=== PATIENT | male | born 1965 | race Hispanic/Latino ===

== ENCOUNTER 2017-06-10 15:48 | Emergency (ER) | payer BC, OTHER ==
[~2017-06-10] VITALS: Ht 170.2 cm; Wt 103.4 kg
[~2017-06-10 15:48] MED LIST: BENTYL10 MG PO; NEXIUM40 MG PO
[2017-06-10] MEDS ORDERED: ACETAMINOPHEN 325 MG TAB PO ONE (16:30)
--- NOTE | 2017-06-10 16:35 | Diagnostic Imaging Report ---
EXAM: XR CHEST 2 VIEWS DATE: 06/10/2017 4:02 PM INDICATION: Chest pain COMPARISON: None FINDINGS: Lines and Tubes: None Heart and Mediastinum: No acute findings. Lungs and Pleura: No acute findings. Bones and Soft Tissues: No acute findings. IMPRESSION: 1. No acute cardiopulmonary findings. Signed by: Dr. Magdaleno Schofield MD on 06/10/2017 4:31 PM
[2017-06-10] MEDS ORDERED: ALBUTEROL/IPRATROPIUM 3 ML NEB NEB ONE (17:00)
[2017-06-10 17:23] VITALS: BP 146/91
== END 2017-06-10 17:20 | disposition home or self-care (01) ==
LOC: ER 15:48
DX: R05 Cough (principal); R51 Headache
CPT/HCPCS: 71046; 94640; 99283

== ENCOUNTER → 2018-04-30 | Day surgery (SDC) | payer OTHER ==
[~2018-04-30] MED LIST changes: +FENTANYL CITRATE/PF 100MCG/2 ML INJ ONE; +MIDAZOLAM HCL 2 MG/2 ML VIAL ONE; +PROPOFOL IV EMULSION 10 MG/ML 20 ML VIAL ONE; +PROPOFOL IV EMULSION 10 MG/ML 50 ML VIAL ONE
--- OUTSIDE RECORDS SUMMARY | 2018-04-30 10:16 | XMS REPORT | CCD ---
Author Author Auto Generated Organization [facility] Address Unknown Phone Unavailable Care Team Providers Care Wood Furniture Assembler Name Role Phone Sera Jenny CP Unavailable Lois Gao CP Unavailable ChartServer, Login CP Unavailable Edie Cabello CP Unavailable Karmen Dominguez CP Unavailable SYSTEM, SYSTEM CP Unavailable Yevgeniy Carmona CP Wes Fisher CP Allergies, Adverse Reactions, Alerts Substance Reaction Status NKDA ?? Active Medications Medication Instructions Start Date End Date Status Tylenol with Codeine 1 - 2 tab, PO, Q4H, PRN, 2 day, 20 11/17/2010 11/19/2010 Completed #3 oral tablet tab, Pain, Substitution Allowed, 11/19/10 23:09:42, Acute Bactrim DS oral 1 tab, PO, BID, 20 tab, 11/17/2010 11/27/2010 Ordered tablet Substitution Allowed, Maintenance Vital Signs Most recent to oldest [Reference Range]: 1 2 Height 170.18 cm (11/17/2010 17:34:00) ? Temperature Oral [96.4-99.1 DegF] 98.7 DegF (11/17/2010 23:31:00) ?? 99.1 DegF (11/17/2010 17:34:00) ?? Systolic Blood Pressure [90-140 mmHg] 129 mmHg (11/17/2010 23:31:00) ?? 138 mmHg (11/17/2010 17:34:00) ?? Diastolic Blood Pressure [60-90 mmHg] 85 mmHg (11/17/2010 23:31:00) ?? 84 mmHg (11/17/2010 17:34:00) ?? Respiratory Rate [14-20 BRMIN] 18 BRMIN (11/17/2010 23:31:00) ?? 18 BRMIN (11/17/2010 17:34:00) ?? Peripheral Pulse Rate [60-100 bpm] 86 bpm (11/17/2010 23:31:00) ?? 90 bpm (11/17/2010 17:34:00) ?? Weight 100.000 kg (11/17/2010 17:34:00) ?
--- OUTSIDE RECORDS SUMMARY | 2018-04-30 10:16 | XMS REPORT | CCD ---
Author Author Auto Generated Organization [facility] Address Unknown Phone Unavailable Care Team Providers Care Accountant Certified Public Name Role Phone CP Unavailable Jenny Zamora CP Unavailable Na Guevara CP [phone] Lois Gao CP Unavailable ChartServer, Login CP [...] ?? Weight 100.000 kg (11/17/2010 17:34:00) ? Procedures Procedures Date Related Diagnosis Emergency department visit for the evaluation and management 11/18/2010 00:00:00 ?? of a patient, which requires these 3 thompson components: A detailed history; A detailed examination; and Medical decision making of moderate complexity. Counseling and/or coordination of care with o
--- OUTSIDE RECORDS SUMMARY | 2018-04-30 10:16 | XMS REPORT | CCD ---
Author Author Auto Generated Organization [facility] Address Unknown Phone Unavailable Care Team Providers Care Family And Consumer Sciences Professor Name Role Phone Sera Jenny CP Unavailable Lois Gao CP Unavailable ChartServer, Login CP Unavailable Edie Cabello CP Unavailable Karmen Dominguez CP Unavailable SYSTEM, SYSTEM CP Unavailable Yevgeniy Carmona CP eWs Fisher CP Allergies, Adverse Reactions, Alerts Substance [...]
--- OUTSIDE RECORDS SUMMARY | 2018-04-30 10:16 | XMS REPORT | CCD ---
Author Author Auto Generated Organization [facility] Address Unknown Phone Unavailable Care Team Providers Care Living Supervisor Name Role Phone CP Unavailable Jenny Zamora CP Unavailable Na Guevara CP [phone] Lois Gao CP Unavailable ChartServer, Login CP [...]
--- OUTSIDE RECORDS SUMMARY | 2018-04-30 10:16 | XMS REPORT | Continuity of Care Document ---
Author Author [facility] Interface Address Unknown Phone Unavailable Problems Problem Status Onset Date Classification Date Reported Comments Source Chronic obstructive pulmonary disease with exacerbation 06/30/2017 09/28/2017 [facility] COUGH Active 06/21/2017 [facility] COPD, HYPOXIA Active 06/21/2017 [facility] Cough 06/19/2017 09/25/2017 [place] COUGH/SOB/CHEST PAIN Active 08/24/2012 [facility] LEG PAIN OR INJURY Active 11/17/2010 [facility] COUGH/CONGESTION Active 06/15/2009 [facility] ARM PAIN Active 03/14/2007 [facility] Hypertension Resolved Problem 08/27/2012 [facility] Sleep apnea<sup>1</sup> Resolved Problem 08/27/2012 [facility] Hypertension Resolved Problem 09/28/2017 [facility], [place] Sleep apnea<sup>1</sup> Resolved Problem 09/28/2017 [facility], [place] Other chest pain 09/25/2017 [place] Respiratory failure, unspecified with hypoxia 09/28/2017 [facility] Sleep apnea, unspecified 09/28/2017 [facility] Essential hypertension 09/28/2017 [facility] Obesity, unspecified 09/28/2017 [facility] Body mass index 35.0-35.9, adult 09/28/2017 [facility] Medications Medication Details Route Status Patient Instructions Ordering Provider Order Date Source Symbicort 160/4.5 inhalation aerosol with adapter 2 puff, INHALER, BID, # 1 ea, 3 Refill(s), Pharmacy: [facility] [place] [facility] Active 06/22/2017 [facility] Ipratropium [place] 0.2 MG/ML Inhalant Solution 200 microgram=1 ml, INHALATION, TID, # 150 ea, 0 Refill(s), Pharmacy: [facility] [place] [facility] Active 06/22/2017 [facility] predniSONE 10 mg oral tablet See Special Instructions, PO, Daily, Days 1-4 - 30 mg daily Days 5-8 - 20 mg daily Days 9-12 - 10 mg daily, X 12 day, # 24 tab, 0 Refill(s), Pharmacy: [facility] [place] [facility] No Longer Active 06/22/2017 [facility] azithromycin 500 mg oral tablet 500 mg=1 tab, PO, Daily, X 5 day, # 5 tab, 0 Refill(s), Pharmacy: [facility] [place] [facility] No Longer Active 06/22/2017 [facility] Trazodone Hydrochloride 50 MG Oral Tablet 50 mg, 1 tab, Route: PO, Drug form: TAB, Bedtime, Dosing Weight 103.636, kg, PRN Sleep, Priority: NOW, Start date: 06/21/17 23:46:00 CDT, Duration: 30 day, Stop date: 07/21/17 23:45:00 CDTNotes: (Same As: Desyrel) No Longer Active 06/22/2017 [facility] Docusate 100 mg, 1 cap, Route: PO, Drug form: CAP, BID, Dosing Weight 103.636, kg, Start date: 06/21/17 17:00:00 CDT, Duration: 30 day, Stop date: 07/21/17 9:00:00 CDTNotes: (Same as: Colace) (Do Not Crush) No Longer Active 06/21/2017 [facility] Ceftriaxone 1 gm, Route: IVP, [id number], Dosing Weight 103.636, kg, Start date: 06/21/17 14:00:00 CDT, Duration: 30 day, Stop date: 07/20/17 14:00:00 CDT, ABX Indication: Non-PNA Respiratory Tract InfectionNotes: (Same As: Rocephin). Use with 100 mL NS and infuse over 30 min MEDICATION WASTE Product Size: 1000 mg Product Wasted: ___ mg No Longer Active 06/21/2017 [facility] Azithromycin 500 mg, Route: IVPB, [id number], Dosing Weight 103.636, kg, Start date: 06/21/17 14:00:00 CDT, Duration: 30 day, Stop date: 07/20/17 14:00:00 CDT, ABX Indication: Non-PNA Respiratory Tract InfectionNotes: (Same As: Zithromax IV) No Longer Active 06/21/2017 [facility] Symbicort 160/4.5 inhalation aerosol with adapter 2 inhalation, Route: INHALATION, Drug Form: AERO/A, Dosing Weight 103.636, kg, RBID, NOW, Start date: 06/21/17 13:36:00 CDT, Duration: 30 day, Stop date: 07/21/17 8:00:00 CDTNotes: (Same as: Symbicort) WASTE: Aerosol - Return to Pharmacy No Longer Active 06/21/2017 [facility] Solu-Medrol 40 mg, 1 mL, Route: IVP, Drug form: INJ, Q8Hnow, Dosing Weight 103.636, kg, Priority: NOW, Start date: 06/21/17 13:36:00 CDT, Duration: 30 day, Stop date: 07/21/17 5:36:00 CDTNotes: (Same as:Solu-MEDROL, A- Methapred) No Longer Active 06/21/2017 [facility] Albuterol 0.833 MG/ML / Ipratropium [place] 0.167 MG/ML Inhalant Solution [DuoNeb] 3 mL, Route: INHALATION, Drug Form: SOLN, Dosing Weight 103.636, kg, RQID, NOW, Start date: 06/21/17 13:36:00 CDT, Duration: 30 day, Stop date: 07/21/17 11:00:00 CDTNotes: (Same as: Duoneb) No Longer Active 06/21/2017 [facility] Dextromethorphan Hydrobromide 10 MG / Guaifenesin 100 MG Oral Tablet 10 mL, Route: PO, Drug Form: LIQ, Dosing Weight 103.636, kg, Q4H, PRN Cough, Start date: 06/21/17 13:36:00 CDT, Stop date: 07/21/17 13:35:00 CDTNotes: (dextromethorphan-guaifenesin 10-100/5 ml LIQ) (Same as: Robitussin-DM) No Longer Active 06/21/2017 [facility] Acetaminophen 325 MG / Hydrocodone Bitartrate 5 MG Oral Tablet 1 tab, Route: PO, Drug Form: TAB, Dosing Weight 103.636, kg, Q4H, PRN Pain Score 4-6, Start date: 06/21/17 13:35:00 CDT, Duration: 30 day, Stop date: 07/21/17 13:34:00 CDTNotes: (Same as: [place] 325/5) Do not exceed 4gm/day of acetaminophen. No Longer Active 06/21/2017 [facility] methylPREDNISolone SODium SUCCinate 125 mg, Route: IVP, ONCE, Dosing Weight 103.636, kg, Priority: STAT, Start date: 06/21/17 11:07:00 CDT, Stop date: 06/21/17 11:07:00 CDT Inactive 06/21/2017 [facility] Albuterol 0.833 MG/ML / Ipratropium [place] 0.167 MG/ML Inhalant Solution [DuoNeb] 3 ml, Route: NEB, Drug Form: SOLN, Dosing Weight 103.636, kg, PRN, PRN Respiratory Protocol, Start date: 06/21/17 11:07:00 CDT, Duration: 30 day, Stop date: 07/21/17 11:06:00 CDTNotes: (Same as: Duoneb) No Longer Active 06/21/2017 [facility] Codeine Phosphate 2 MG/ML / Guaifenesin 20 MG/ML Oral Solution [Cheratussin] 5-10 ml, PO, Q4H, PRN for cough, X 5 day, # 240 mL, 0 Refill(s) No Longer Active 06/19/2017 [facility] Saline Flush 0.9% 10 mL, Route: IVP, Drug Form: INJ, Dosing Weight 104.091, kg, PRN, PRN Line Flush, Start date: 06/19/17 0:09:00 CDT, Duration: 30 day, Stop date: 07/19/17 0:08:00 CDTNotes: (Same as: BD Posiflush) Inactive 06/19/2017 [place] Sodium Chloride 0.9% (Bolus) IV 1,000 mL, 1000 ml/hr, Infuse Over: 1 hr, Route: IV, 1,000, Drug form: INJ, ONCE, Priority: STAT, Dosing Weight 104.091 kg, Start date: 06/19/17 0:09:00 CDT, Stop date: 06/19/17 0:09:00 CDT Inactive 06/19/2017 [place] Acetaminophen 325 MG / Hydrocodone Bitartrate 5 MG Oral Tablet [[place] 5/325] 2 tab, Route: PO, Drug Form: TAB, Dosing Weight 104.091, kg, ONCE, Start date: 06/19/17 0:09:00 CDT, Stop date: 06/19/17 0:09:00 CDTNotes: (Same as: [place] 325/5) Do not exceed 4gm/day of acetaminophen. Inactive 06/19/2017 [facility] albuterol 90 mcg/inh inhalation aerosol 2 puff, INHALATION, QID, PRN Wheezing, # 17 gm, 0 Refill(s) Active 06/16/2017 [facility] Saline Flush 0.9% 10 mL, Route: IVP, Drug Form: INJ, Dosing Weight 102.727, kg, PRN, PRN Line Flush, Start date: 06/15/17 19:42:00 CDT, Duration: 30 day, Stop date: 07/15/17 19:41:00 CDTNotes: (Same as: BD Posiflush) Inactive 06/16/2017 [facility] Azithromycin 5 Day Dose Pack 250 mg oral tablet 250 mg, PO, Daily, Take 2 tablets by mouth the first day then 1 tablet by mouth days 2- 5, 6 tab, Substitution AllowedTake 2 tablets by mouth the first day then 1 tablet by mouth days 2-5 PO Active [facility] 08/25/2012 [facility] albuterol CFC free 90 mcg/inh inhalation aerosol with adapter 2 puff, INHALATION, Q6H, PRN, 9 gm, for wheezing, Substitution Allowed, Maintenance, AERO INHALATION Active [facility] 08/25/2012 [facility] albuterol 0.083% inhalation solution 7.47 mg, Route: NEB, Drug form: SOLN, ONCE, Dosing Weight 102.727, kg, Priority: STAT, Start date: 08/25/12 10:51:00, Stop date: 08/25/12 10:51:00 NEB No Longer Active [facility] 08/25/2012 [facility] predniSONE 20 mg oral tablet 60 mg, 3 tab, PO, Daily, 9 tab, Substitution Allowed, TAB PO Active [facility] 02/16/2011 [facility] albuterol CFC free 90 mcg/inh inhalation aerosol with adapter 1 puff, INHALATION, Q4H, PRN, 9 gm, for wheezing, Substitution Allowed, Maintenance, AERO INHALATION Active [facility] 02/16/2011 [facility] predniSONE 80 mg, Route: PO, ONCE, Priority: STAT, Start date: 02/16/11 15:06:00, Stop date: 02/16/11 15:06:00 PO No Longer Active [facility] 02/16/2011 [facility] albuterol 0.083% inhalation solution 4.98 mg, Route: NEB, Drug form: SOLN, ONCE, Start date: 02/16/11 15:06:00, Stop date: 02/16/11 15:06:00 NEB No Longer Active [facility] 02/16/2011 [facility] Tylenol with Codeine #3 oral tablet 1 - 2 tab, PO, Q4H, PRN, 2 day, 20 tab, Pain, Substitution Allowed, 11/19/10 23:09:42, Acute PO No Longer Active [place] 11/18/2010 [facility] Bactrim DS oral tablet 1 tab, PO, BID, 20 tab, Substitution Allowed, Maintenance PO Active [place] 11/18/2010 [facility] Allergies, Adverse Reactions, Alerts Substance Category Reaction Severity Reaction type Status Date Reported Comments Source Immunizations Immunization Date Given Site Status Last Updated Comments Source Results Order Name Results Value Reference Range Date Interpretation Comments Source CHEM PANEL eGFR 101 mL/min/1.73m2 06/22/2017 Result Comment: The eGFR is calculated using the CKD-EPI formula. In most young, healthy individuals the eGFR will be >90 mL/min/1.73m2. The eGFR declines with age. An eGFR of 60-89 may be normal in some populations, particularly the elderly, for whom the CKD-EPI formula has not been extensively validated. Use of the eGFR is not recommended in the following populations: Individuals with unstable creatinine concentrations, including patients and those with serious co-morbid conditions. Patients with extremes in muscle mass or diet. The data above are obtained from the National Kidney Disease Education Program (NKDEP) which additionally recommends that when the eGFR is used in patients with extremes of body mass index for purposes of drug dosing, the eGFR should be multiplied by the estimated BMI. [facility] CHEM PANEL CO2 24 meq/L 24 - 32 06/22/2017 [facility] CHEM PANEL Potassium Lvl 3.8 meq/L 3.5 - 5.1 06/22/2017 [facility] CHEM PANEL Chloride Lvl 104 meq/L 95 - 109 06/22/2017 [facility] CHEM PANEL Glucose Lvl 145 mg/dL 70 - 99 06/22/2017 [facility] CHEM PANEL AGAP 11.8 meq/L 10.0 - 20.0 06/22/2017 [facility] CHEM PANEL Calcium Lvl 9.1 mg/dL 8.5 - 10.5 06/22/2017 [facility] CHEM PANEL BUN 9 mg/dL 7 - 22 06/22/2017 [facility] CHEM PANEL Creatinine Lvl 0.86 mg/dL 0.50 - 1.40 06/22/2017 [facility] CHEM PANEL Sodium Lvl 136 meq/L 135 - 145 06/22/2017 [facility] HEMATOLOGY WBC 9.0 K/CMM 3.7 - 10.4 06/22/2017 [facility] HEMATOLOGY RBC 4.92 M/CMM 4.70 - 6.10 06/22/2017 [facility] HEMATOLOGY Hgb 14.8 g/dL 14.0 - 18.0 06/22/2017 [facility] Hct 43.8 % 42.0 - 54.0 06/22/2017 [facility] MCV 89.0 fL 80.0 - 94.0 06/22/2017 [facility] MCH 30.0 pg 27.0 - 31.0 06/22/2017 [facility] MCHC 33.7 g/dL 32.0 - 36.0 06/22/2017 [facility] RDW 12.3 % 11.5 - 14.5 06/22/2017 [facility] Platelet 203 K/CMM 133 - 450 06/22/2017 [facility] MPV 9.6 fL 7.4 - 10.4 06/22/2017 [facility] CARDIAC ENZYMES Total CK 107 unit/L 12 - 191 06/21/2017 [facility] CARDIAC ENZYMES CK MB null 0.5 - 3.6 06/21/2017 [facility] CARDIAC ENZYMES BNP 19 pg/mL <=100 pg/mL 06/21/2017 [facility] CARDIAC ENZYMES CK MB Index null 0.0 - 2.5 06/21/2017 [facility] CARDIAC ENZYMES Troponin-I null 0.00 - 0.40 06/21/2017 [facility] PANEL eGFR 102 mL/min/1.73m2 06/21/2017 Result Comment: The eGFR is calculated using the CKD-EPI formula. In most young, healthy individuals the eGFR will be >90 mL/min/1.73m2. The eGFR declines with age. An eGFR of 60-89 may be normal in some populations, particularly the elderly, for whom the CKD-EPI formula has not been extensively validated. Use of the eGFR is not recommended in the following populations: Individuals with unstable creatinine concentrations, including patients and those with serious co-morbid conditions. Patients with extremes in muscle mass or diet. The data above are obtained from the National Kidney Disease Education Program (NKDEP) which additionally recommends that when the eGFR is used in patients with extremes of body mass index for purposes of drug dosing, the eGFR should be multiplied by the estimated BMI. [facility] CHEM PANEL BUN 8 mg/dL 7 - 22 06/21/2017 [facility] CHEM PANEL Creatinine Lvl 0.84 mg/dL 0.50 - 1.40 06/21/2017 [facility] CHEM PANEL Sodium Lvl 140 meq/L 135 - 145 06/21/2017 [facility] CHEM PANEL Potassium Lvl 3.6 meq/L 3.5 - 5.1 06/21/2017 [facility] CHEM PANEL Glucose Lvl 86 mg/dL 70 - 99 06/21/2017 [facility] CHEM PANEL Globulin 3.5 g/dL 2.7 - 4.2 06/21/2017 [facility] CHEM PANEL B/C Ratio 10 6 - 25 06/21/2017 [facility] CHEM PANEL A/G Ratio 1.1 0.7 - 1.6 06/21/2017 [facility] CHEM PANEL CO2 26 meq/L 24 - 32 06/21/2017 [facility] CHEM PANEL Chloride Lvl 102 meq/L 95 - 109 06/21/2017 [facility] CHEM PANEL AGAP 15.6 meq/L 10.0 - 20.0 06/21/2017 [facility] CHEM PANEL ALT 32 unit/L 0 - 65 06/21/2017 [facility] CHEM PANEL Alk Phos 89 unit/L 39 - 136 06/21/2017 [facility] CHEM PANEL Bili Total 1.1 mg/dL 0.2 - 1.3 06/21/2017 [facility] CHEM PANEL AST 20 unit/L 0 - 37 06/21/2017 [facility] CHEM PANEL Calcium Lvl 8.5 mg/dL 8.5 - 10.5 06/21/2017 [facility] CHEM PANEL Albumin Lvl 3.8 g/dL 3.5 - 5.0 06/21/2017 [facility] CHEM PANEL Total Protein 7.3 g/dL 6.4 - 8.4 06/21/2017 [facility] HEMATOLOGY MPV 9.3 fL 7.4 - 10.4 06/21/2017 [facility] Platelet 199 K/CMM 133 - 450 06/21/2017 [facility] RDW 12.5 % 11.5 - 14.5 06/21/2017 [facility] RBC 4.96 M/CMM 4.70 - 6.10 06/21/2017 [facility] WBC 9.0 K/CMM 3.7 - 10.4 06/21/2017 [facility] Hgb 14.8 g/dL 14.0 - 18.0 06/21/2017 [facility] MCHC 33.9 g/dL 32.0 - 36.0 06/21/2017 [facility] MCH 29.8 pg 27.0 - 31.0 06/21/2017 [facility] MCV 87.9 fL 80.0 - 94.0 06/21/2017 [facility] Hct 43.6 % 42.0 - 54.0 06/21/2017 [facility] Eosinophils # 0.4 K/CMM 0.0 - 0.5 06/21/2017 [facility] Monocytes # 0.4 K/CMM 0.0 - 0.8 06/21/2017 [facility] Basophils 0.4 % 0.0 - 1.0 06/21/2017 [facility] Lymphocytes # 2.0 K/CMM 1.0 - 5.5 06/21/2017 [facility] Segs-Bands # 6.1 K/CMM 1.5 - 8.1 06/21/2017 [facility] Eosinophils 4.4 % 0.0 - 4.0 06/21/2017 [facility] Monocytes 4.8 % 2.0 - 12.0 06/21/2017 [facility] Lymphocytes 22.2 % 20.0 - 40.0 06/21/2017 [facility] Segs 68.2 % 45.0 - 75.0 06/21/2017 [facility] Chest 1view DX Chest 1view DX 1 VIEW CXR. PORTABLE EXAM 11:31 AM HISTORY: Chest pain, shortness of breath and cough. COMPARISON: 06/15/2017 chest x-ray. The cardiomediastinal silhouette is normal. The lungs are clear with normal pulmonary vasculature. No pleural abnormality. Bones intact. IMPRESSION: Normal exam. END OF IMPRESSION SL: [id number] 06/21/2017 - - Read by: Diego Landon MD Dictated Date/time: 06/21/17 11:46 Electronically Signed by: Diego Landon MD 06/21/17 11:46 FINAL REPORT [facility] CARDIAC ENZYMES Troponin-I null 0.00 - 0.40 06/19/2017 [place] CHEM PANEL A/G Ratio 1.1 0.7 - 1.6 06/19/2017 [place] CHEM PANEL AGAP 9.5 meq/L 10.0 - 20.0 06/19/2017 [place] CHEM PANEL B/C Ratio 12 6 - 25 06/19/2017 [place] CHEM PANEL Globulin 3.3 g/dL 2.7 - 4.2 06/19/2017 [place] CHEM PANEL eGFR 95 mL/min/1.73m2 06/19/2017 Result Comment: The eGFR is calculated using the CKD-EPI formula. In most young, healthy individuals the eGFR will be >90 mL/min/1.73m2. The eGFR declines with age. An eGFR of 60-89 may be normal in some populations, particularly the elderly, for whom the CKD-EPI formula has not been extensively validated. Use of the eGFR is not recommended in the following populations: Individuals with unstable creatinine concentrations, including patients and those with serious co-morbid conditions. Patients with extremes in muscle mass or diet. The data above are obtained from the National Kidney Disease Education Program (NKDEP) which additionally recommends that when the eGFR is used in patients with extremes of body mass index for purposes of drug dosing, the eGFR should be multiplied by the estimated BMI. [place] CHEM PANEL Bili Total 0.7 mg/dL 0.2 - 1.3 06/19/2017 [place] CHEM PANEL Total Protein 6.9 g/dL 6.4 - 8.4 06/19/2017 [place] CHEM PANEL Albumin Lvl 3.6 g/dL 3.5 - 5.0 06/19/2017 [place] CHEM PANEL ALT 28 unit/L 0 - 65 06/19/2017 [place] CHEM PANEL AST 22 unit/L 0 - 37 06/19/2017 [place] CHEM PANEL Alk Phos 97 unit/L 39 - 136 06/19/2017 [place] CHEM PANEL Sodium Lvl 141 meq/L 135 - 145 06/19/2017 [place] CHEM PANEL Potassium Lvl 3.5 meq/L 3.5 - 5.1 06/19/2017 [place] CHEM PANEL Chloride Lvl 106 meq/L 95 - 109 06/19/2017 [place] CHEM PANEL CO2 29 meq/L 24 - 32 06/19/2017 [place] CHEM PANEL Calcium Lvl 7.9 mg/dL 8.5 - 10.5 06/19/2017 [place] CHEM PANEL Glucose Lvl 124 mg/dL 70 - 99 06/19/2017 [place] CHEM PANEL BUN 11 mg/dL 7 - 22 06/19/2017 [place] CHEM PANEL Creatinine Lvl 0.93 mg/dL 0.50 - 1.40 06/19/2017 [place] HEMATOLOGY Hct 42.5 % 42.0 - 54.0 06/19/2017 [place] HEMATOLOGY RBC 4.80 M/CMM 4.70 - 6.10 06/19/2017 [place] HEMATOLOGY WBC 10.2 K/CMM 3.7 - 10.4 06/19/2017 [place] HEMATOLOGY Hgb 14.0 g/dL 14.0 - 18.0 06/19/2017 [place] HEMATOLOGY MCHC 33.0 g/dL 32.0 - 36.0 06/19/2017 [place] HEMATOLOGY MCV 88.4 fL 80.0 - 94.0 06/19/2017 [place] HEMATOLOGY MCH 29.1 pg 27.0 - 31.0 06/19/2017 [place] HEMATOLOGY Platelet 225 K/CMM 133 - 450 06/19/2017 [place] HEMATOLOGY RDW 12.7 % 11.5 - 14.5 06/19/2017 [place] HEMATOLOGY MPV 9.5 fL 7.4 - 10.4 06/19/2017 [place] HEMATOLOGY Lymphocytes 30.1 % 20.0 - 40.0 06/19/2017 [place] HEMATOLOGY Monocytes 3.8 % 2.0 - 12.0 06/19/2017 [place] HEMATOLOGY Segs 59.9 % 45.0 - 75.0 06/19/2017 [place] HEMATOLOGY Eosinophils # 0.6 K/CMM 0.0 - 0.5 06/19/2017 [place] HEMATOLOGY Monocytes # 0.4 K/CMM 0.0 - 0.8 06/19/2017 [facility] HEMATOLOGY Lymphocytes # 3.1 K/CMM 1.0 - 5.5 06/19/2017 [facility] HEMATOLOGY Segs-Bands # 6.1 K/CMM 1.5 - 8.1 06/19/2017 [facility] HEMATOLOGY Basophils 0.6 % 0.0 - 1.0 06/19/2017 [facility] HEMATOLOGY Eosinophils 5.6 % 0.0 - 4.0 06/19/2017 [facility] HEMATOLOGY Basophils # 0.1 K/CMM 0.0 - 0.2 06/19/2017 [facility] Chest Pulmonary Embolism CTA Chest Pulmonary Embolism CTA CLINICAL HISTORY: , - Persistent cough and shortness of breath EXAM: CT pulmonary angiogram 06/19/2017 12:09 AM CDT Comparisons: None. TECHNIQUE: Following a timed administration of intravenous contrast, volumetric CT acquisition was performed in the chest. Images in the axial, coronal, and sagittal planes were presented for interpretation. Maximum intensity projection images were also presented for interpretation. This examination was performed according to our departmental dose optimization protocol, which includes automated exposure control, adjustment of the mA and/or kV according to the patient size and/or use of iterative reconstruction technique. Radiation dose and contrast: 100 ml omni DLP: 992.59 mGy-cm. FINDINGS: There is no evidence of pulmonary embolism on this diagnostic quality study. The lungs are clear without focal consolidation or pleural effusion . The heart is normal in size. The thoracic aorta and its primary branches are normal in course and caliber. The main pulmonary artery and visualized proximal tracheobronchial tree are normal in appearance. There are no pathologically enlarged mediastinal, hilar, supraclavicular, or axillary lymph nodes. The soft tissue structures of the neck are grossly normal in appearance. Limited evaluation of the upper abdomen demonstrates no gross abnormalities. The osseous structures are within normal limits for the patient's age. IMPRESSION: 1. No evidence of pulmonary embolism. 2. No acute intrathoracic process. 06/19/2017 - - Read by: Justin Soto MD Dictated Date/time: 06/19/17 01:52 Electronically Signed by: Justin Soto MD 06/19/17 01:54 FINAL REPORT [facility] CARDIAC ENZYMES CK MB Index 1.1 0.0 - 2.5 06/16/2017 [facility] CARDIAC ENZYMES BNP 26 pg/mL <=100 pg/mL 06/16/2017 [facility] CARDIAC ENZYMES Troponin-I null 0.00 - 0.40 06/16/2017 [facility] CARDIAC ENZYMES CK MB 0.8 ng/mL 0.5 - 3.6 06/16/2017 [facility] CARDIAC ENZYMES Total CK 70 unit/L 12 - 191 06/16/2017 [facility] CHEM PANEL eGFR 80 mL/min/1.73m2 06/16/2017 Result Comment: The eGFR is calculated using the CKD-EPI formula. In most young, healthy individuals the eGFR will be >90 mL/min/1.73m2. The eGFR declines with age. An eGFR of 60-89 may be normal in some populations, particularly the elderly, for whom the CKD-EPI formula has not been extensively validated. Use of the eGFR is not recommended in the following populations: Individuals with unstable creatinine concentrations, including patients and those with serious co-morbid conditions. Patients with extremes in muscle mass or diet. The data above are obtained from the National Kidney Disease Education Program (NKDEP) which additionally recommends that when the eGFR is used in patients with extremes of body mass index for purposes of drug dosing, the eGFR should be multiplied by the estimated BMI. [facility] CHEM PANEL CO2 28 meq/L 24 - 32 06/16/2017 [facility] CHEM PANEL Total Protein 7.4 g/dL 6.4 - 8.4 06/16/2017 [facility] CHEM PANEL Calcium Lvl 8.8 mg/dL 8.5 - 10.5 06/16/2017 [facility] CHEM PANEL Chloride Lvl 103 meq/L 95 - 109 06/16/2017 [facility] CHEM PANEL Alk Phos 108 unit/L 39 - 136 06/16/2017 [facility] CHEM PANEL AST 15 unit/L 0 - 37 06/16/2017 [facility] CHEM PANEL Bili Total 0.7 mg/dL 0.2 - 1.3 06/16/2017 [facility] CHEM PANEL ALT 36 unit/L 0 - 65 06/16/2017 [facility] CHEM PANEL Albumin Lvl 4.1 g/dL 3.5 - 5.0 06/16/2017 [facility] CHEM PANEL A/G Ratio 1.2 0.7 - 1.6 06/16/2017 [facility] CHEM PANEL Globulin 3.3 g/dL 2.7 - 4.2 06/16/2017 [facility] CHEM PANEL B/C Ratio 10 6 - 25 06/16/2017 [facility] CHEM PANEL AGAP 9.4 meq/L 10.0 - 20.0 06/16/2017 [facility] CHEM PANEL Glucose Lvl 181 mg/dL 70 - 99 06/16/2017 [facility] CHEM PANEL Potassium Lvl 3.4 meq/L 3.5 - 5.1 06/16/2017 [facility] CHEM PANEL Sodium Lvl 137 meq/L 135 - 145 06/16/2017 [facility] CHEM PANEL Creatinine Lvl 1.08 mg/dL 0.50 - 1.40 06/16/2017 [facility] CHEM PANEL BUN 11 mg/dL 7 - 22 06/16/2017 [facility] HEMATOLOGY Eosinophils 0.5 % 0.0 - 4.0 06/16/2017 [facility] HEMATOLOGY Monocytes 3.0 % 2.0 - 12.0 06/16/2017 [facility] HEMATOLOGY Segs 73.8 % 45.0 - 75.0 06/16/2017 [facility] Lymphocytes 22.3 % 20.0 - 40.0 06/16/2017 [facility] Segs-Bands # 6.7 K/CMM 1.5 - 8.1 06/16/2017 [facility] Basophils 0.4 % 0.0 - 1.0 06/16/2017 [facility] Monocytes # 0.3 K/CMM 0.0 - 0.8 06/16/2017 [facility] Lymphocytes # 2.0 K/CMM 1.0 - 5.5 06/16/2017 [facility] D-Dimer null 06/16/2017 [facility] MPV 9.8 fL 7.4 - 10.4 06/16/2017 [facility] Platelet 211 K/CMM 133 - 450 06/16/2017 [facility] MCHC 34.4 g/dL 32.0 - 36.0 06/16/2017 [facility] RDW 12.6 % 11.5 - 14.5 06/16/2017 [facility] MCH 30.4 pg 27.0 - 31.0 06/16/2017 [facility] MCV 88.5 fL 80.0 - 94.0 06/16/2017 [facility] Hct 42.9 % 42.0 - 54.0 06/16/2017 [facility] Hgb 14.7 g/dL 14.0 - 18.0 06/16/2017 [facility] RBC 4.84 M/CMM 4.70 - 6.10 06/16/2017 [facility] WBC 9.1 K/CMM 3.7 - 10.4 06/16/2017 [facility] HEMATOLOGY PT 12.0 s 12.0 - 14.7 06/16/2017 [facility] HEMATOLOGY INR 0.89 0.85 - 1.17 06/16/2017 [facility] PTT 26.3 s 22.9 - 35.8 06/16/2017 [facility] Chest 2 views DX Chest 2 views DX Study: Chest 2 views DX 06/15/2017 8:31 PM CDT Ordering Physician: Adalberto Greenwood Clinical Indication: Cough, SOB - Do not compare to last film, that was the wrong patient Comparison: None FINDINGS: The lung volumes are low. There is no evidence for alveolar consolidation, pleural effusion, pulmonary edema or pneumothorax. The cardiomediastinal silhouette is within normal limits. No acute osseous abnormality is seen. Soft tissues are unremarkable. IMPRESSION: No acute cardiopulmonary disease. SL: [id number] 06/15/2017 - - Read by: Libra Keller MD Dictated Date/time: 06/15/17 20:42 Electronically Signed by: Libra Keller MD 06/15/17 20:43 FINAL REPORT [facility] Chest 2 views DX Chest 2 views DX This report does not belong to patient. This examination was dictated in error. Please disregard this report. Clinical Indication: Pancreatic mass. Pancreas biopsy yesterday. Acute abdominal and chest pain Comparison: August 25, 2012 FINDINGS: The PA and lateral chest radiographs shows normal lung volumes without interstitial or airspace opacities, pleural effusions or pneumothorax. The heart size and pulmonary vasculature are normal. The trachea is midline. There are no clinically significant osseous abnormalities noted. IMPRESSION: No chest radiographic evidence of acute cardiopulmonary disease. No free air is identified. SL: [id number] 06/15/2017 - - Read by: Gray Ramos MD Dictated Date/time: 06/15/17 21:25 Electronically Signed by: Gray Ramos MD 06/15/17 21:28 FINAL REPORT - - Read by: Gray Ramos MD Dictated Date/time: 06/15/17 20:06 Electronically Signed by: Gray Ramos MD 06/15/17 20:07 FINAL REPORT [facility] Chest 2 views Chest 2 views NAME: SHELBY NUGENT : 1965 SEX: M Ordering Physician: Jorje Quiles Chest 2 views : Aug 25, 2012 11:07:00 AM. CLINICAL INDICATION: Chest pain. Comparison Examination: 02/16/2011. FINDINGS: Cardiac and mediastinal structures are stable. No focal infiltrate identified within the lungs, no edema, no pleural effusions and no pneumothorax. SL: 14 08/25/2012 - - Read by: Zachary Cristobal Date/time: 08/25/12 11:14 Electronically Signed by: Zachary Cristobal MD 08/25/12 11:14 FINAL REPORT [facility] Vital Signs Vital Sign Value Date Comments Source Temperature Oral (F) 97.6 F 06/22/2017 [facility] Heart Rate 104 06/22/2017 [facility] Systolic (mm Hg) 145 06/22/2017 [facility] Diastolic (mm Hg) 76 06/22/2017 [facility] Respitory Rate 20 06/22/2017 [facility] Systolic (mm Hg) 146 06/22/2017 [facility] Diastolic (mm Hg) 84 06/22/2017 [facility] Respitory Rate 16 06/22/2017 [facility] Heart Rate 92 06/22/2017 [facility] Temperature Oral (F) 97.9 F 06/22/2017 [facility] Heart Rate 103 06/22/2017 [facility] Temperature Oral (F) 98.1 F 06/22/2017 [facility] Respitory Rate 20 06/22/2017 [facility] Systolic (mm Hg) 132 06/22/2017 [facility] Diastolic (mm Hg) 74 06/22/2017 [facility] Height 170.18 cm 06/21/2017 [facility] Weight 103.636 06/21/2017 [facility] BMI Calculated 35.78 06/21/2017 [facility] Height 170.18 cm 06/21/2017 [facility] BMI Calculated 35.78 06/21/2017 [facility] Weight 103.636 06/21/2017 [facility] Respitory Rate 20 06/19/2017 [facility] Heart Rate 89 06/19/2017 [place] Temperature Oral (F) 97.8 F 06/19/2017 [place] Systolic (mm Hg) 150 06/19/2017 [place] Diastolic (mm Hg) 78 06/19/2017 [place] Weight 104.091 06/19/2017 [place] Temperature Oral (F) 97.9 F 06/19/2017 [place] Systolic (mm Hg) 145 06/19/2017 [place] Diastolic (mm Hg) 85 06/19/2017 [place] Heart Rate 78 06/19/2017 [place] Respitory Rate 18 06/19/2017 [place] Respitory Rate 20 06/16/2017 [facility] Temperature Oral (F) 98.5 F 06/16/2017 [place] Systolic (mm Hg) 149 06/16/2017 [facility] Diastolic (mm Hg) 82 06/16/2017 [facility] Heart Rate 86 06/16/2017 [facility] Weight 102.727 08/25/2012 [facility] Height 167.64 cm 08/25/2012 [facility] Diastolic (mm Hg) 60.0 02/16/2011 [facility] Temperature Oral (F) 98.0 F 02/16/2011 [facility] Heart Rate 87.0 02/16/2011 [facility] Respitory Rate 18.0 02/16/2011 [facility] Systolic (mm Hg) 134.0 02/16/2011 [facility] Height 170.18 cm 02/16/2011 [facility] Weight 96.364 02/16/2011 [facility] Temperature Oral (F) 98.7 F 02/16/2011 [facility] Systolic (mm Hg) 115.0 02/16/2011 [facility] Diastolic (mm Hg) 90.0 02/16/2011 [facility] Heart Rate 81.0 02/16/2011 [facility] Respitory Rate 18.0 02/16/2011 [facility] Respitory Rate 18.0 11/18/2010 [facility] Peripheral Pulse Rate 86.0 11/18/2010 [facility] Temperature Oral (F) 98.7 F 11/18/2010 [facility] Diastolic (mm Hg) 85.0 11/18/2010 [facility] Systolic (mm Hg) 129.0 11/18/2010 [facility] Height 170.18 cm 11/17/2010 [facility] Weight 100.0 11/17/2010 [facility] Diastolic (mm Hg) 84.0 11/17/2010 [facility] Respitory Rate 18.0 11/17/2010 [facility] Peripheral Pulse Rate 90.0 11/17/2010 [facility] Temperature Oral (F) 99.1 F 11/17/2010 [facility] Systolic (mm Hg) 138.0 11/17/2010 [facility] Encounters Location Location Details Encounter Type Encounter Number Reason For Visit Attending Provider ADM Date DC Date Status Source [facility] Emergency [id number] ARM PAIN KUSHAL YADIRA 03/15/2007 03/15/2007 Active [facility] Emergency [id number] COUGH/CONGESTION MITCHEL THERESA 06/16/2009 06/16/2009 Active [facility] Emergency [id number] NICOLE CARRILLO 11/17/2010 11/18/2010 Active [facility] Emergency [id number] HEATHER DALI 02/16/2011 02/16/2011 Active [facility] Emergency [id number] SANTIAGO LAZARUS 08/25/2012 08/25/2012 Active [facility] Emergency [id number] Kushal Lujan 06/16/2017 06/16/2017 [facility] Emergency [id number] [place] Wolf 06/19/2017 06/19/2017 [facility] Observation [id number] Gwendolyn Kwok 06/21/2017 06/22/2017 [facility] Procedures Procedure Code Date Perfomer Comments Source Emergency department visit for the evaluation and management of a patient, which requires these 3 thompson components: A detailed history; A detailed examination; and Medical decision making of moderate complexity. Counseling [place] [id number] 11/18/2010 [facility]
--- OUTSIDE RECORDS SUMMARY | 2018-04-30 10:16 | XMS REPORT | CCD ---
Author Author Auto Generated Organization [facility] Address Unknown Phone Unavailable Care Team Providers Care Electric Frying Pan Repairer Name Role Phone Sera Jenny CP Unavailable [...]
--- OUTSIDE RECORDS SUMMARY | 2018-04-30 10:16 | XMS REPORT | Clinical Summary ---
Author Author [facility] Organization [facility] Address Unknown Phone Unavailable Care Team Providers Care Profile Saw Operator Name Role Phone Brittany Segovia PCP Unavailable Allergies No Known Allergies Medications Not on file Active Problems Not on file Encounters Care Team Description Date Type Specialty 06/18/2017 Emergency Emergency Medicine - 06/19/2017 06/18/2017 Orders Only General Internal Medicine after 04/29/2017 Social History Date Tobacco Use Types Packs/Day Years Used Never Assessed Sex Assigned at Date Recorded Not on file Industry Job Start Date Occupation Not on file Not on file Not on file Travel End Travel History Travel Start No recent travel history available. Last Filed Vital Signs Time Taken Vital Sign Reading 06/18/2017 5:50 PM CDT Blood Pressure 139/86 06/18/2017 5:50 PM CDT Pulse 76 06/18/2017 3:21 PM CDT Temperature 36.8 C (98.2 F) 06/18/2017 5:50 PM CDT Respiratory Rate 20 06/18/2017 5:50 PM CDT Oxygen Saturation 95% - Inhaled Oxygen - Concentration 06/18/2017 3:21 PM CDT Weight 103.4 kg (228 lb) 06/18/2017 3:21 PM CDT Height 170.2 cm (5' 7") 06/18/2017 3:21 PM CDT Body Mass Index 35.71 Plan of Treatment Not on file Procedures Comments Procedure Name Priority Date/Time Associated Diagnosis XR CHEST 2 VIEWS STAT 06/18/2017 8:51 PM CDT CBC W/PLT COUNT & AUTO STAT 06/18/2017 DIFFERENTIAL 8:12 PM CDT BASIC METABOLIC PANEL (7) STAT 06/18/2017 8:12 PM CDT CBC W/PLT COUNT & AUTO STAT 06/18/2017 DIFFERENTIAL 8:12 PM CDT ECG 12-LEAD Routine 06/18/2017 3:24 PM CDT Procedure Note - Interface, External Ris In - 06/18/2017 10:15 PM CDT Ventricula r Rate 79 BPM Atrial Rate 79 BPM P-R Interval 160 ms QRS Duration 104 ms Q-T Interval 374 ms QTC Calculatio n(Bazett) 428 ms P Woden 44 degrees R Woden 23 degrees T Woden 42 degrees Normal sinus rhythm Normal ECG No previous ECGs available ECG 12-LEAD STAT 06/18/2017 3:24 PM CDT after 04/29/2017 Results * XR chest 2 views (06/18/2017 8:51 PM CDT) Narrative Performed At FINAL REPORT [facility] Examination: Two view Chest X-ray. CLINICAL HISTORY: Cough COMPARISON:None. The cardiomediastinal and hilar contours are unremarkable. The lung volumes are low. There is no focal consolidation, pleural effusion, pneumothorax or evidence of overt pulmonary edema. There is no acute bony abnormality. IMPRESSION: No acute abnormality. Signed: Tai Han MD Report Verified Date/Time:06/18/2017 20:53:03 Reading Location: [address] Reading Room Procedure Note Interface, External Ris In - 06/18/2017 8:55 PM CDT FINAL REPORT Examination: Two view Chest X-ray. CLINICAL HISTORY: Cough COMPARISON:None. The cardiomediastinal and hilar contours are unremarkable. The lung volumes are low. There is no focal consolidation, pleural effusion, pneumothorax or evidence of overt pulmonary edema. There is no acute bony abnormality. IMPRESSION: No acute abnormality. Signed: Tai Han MD Report Verified Date/Time: 06/18/2017 20:53:03 Reading Location: [address] Reading Room Performing Organization Address City/State/Zipcode Phone Number [facility] * CBC with platelet count + automated diff (06/18/2017 8:12 PM CDT) WBC 9.2 3.5 - 10.5 K/L [facility] RBC 4.69 4.63 - 6.08 M/L [facility] Hemoglobin 14.1 13.7 - 17.5 GM/DL [facility] Hematocrit 42.7 40.1 - 51.0 % [facility] MCV 91.0 79.0 - 92.2 fL [facility] MCH 30.1 25.7 - 32.2 pg [facility] MCHC 33.0 32.3 - 36.5 GM/DL [facility] RDW 11.9 11.6 - 14.4 % [facility] Platelets 217 150 - 450 K/CU MM [facility] MPV 10.9 9.4 - 12.4 fL [facility] nRBC 0 0 - 0 /100 WBC [facility] % Neutros 54 % [facility] % Lymphs 33 % [facility] % Monos 5 % [facility] % Eos 6 % [facility] % Baso 1 % [facility] # Neutros 4.96 1.78 - 5.38 K/L [facility] # Lymphs 3.07 1.32 - 3.57 K/L [facility] # Monos 0.47 0.30 - 0.82 K/L [facility] # Eos 0.58 (H) 0.04 - 0.54 K/L [facility] # Baso 0.06 0.01 - 0.08 K/L [facility] Immature 0 0 - 1 % [facility] Granulocytes-Relative [facility] Specimen Blood Performing Organization Address City/State/Zipcode Phone Number [facility] [address] [place] [address] [facility] * Basic metabolic panel (Na, K+, Cl, CO2, Glu, Ca, BUN, Cr) (06/18/2017 8:12 PM CDT) Sodium 140 136 - 145 meq/L [facility] Potassium 3.3 (L) 3.5 - 5.1 meq/L [facility] Chloride 104 98 - 107 meq/L [facility] CO2 26 22 - 29 meq/L [facility] BUN 12 7 - 21 mg/dL [facility] Creatinine 0.85 0.57 - 1.25 mg/dL [facility] Glucose 101 70 - 105 mg/dL [facility] Calcium 9.0 8.4 - 10.2 mg/dL [facility] EGFR 95Comment: ESTIMATED GFR IS mL/min/1.[address] [facility] NOT ACCURATE CREATININE [facility] CLEARANCE IN PREDICTING GLOMERULAR FILTRATION RATE. ESTIMATED GFR IS NOT APPLICABLE FOR DIALYSIS PATIENTS. Specimen Blood Performing Organization Address [facility] Phone Number [facility] [address] [place] [address] [facility] * ECG 12 lead (06/18/2017 3:24 PM CDT) Narrative Performed At Ventricular Rate 79 BPM [facility] Atrial Rate 79 BPM P-R Interval 160 ms QRS Duration 104 ms Q-T Interval 374 ms QTC Calculation(Bazett) 428 ms P Woden 44 degrees R Woden 23 degrees T Woden 42 degrees Normal sinus rhythm RSR' pattern in V1 Normal ECG No previous ECGs available Confirmed by MD ERIKA, VEENA ([id number]) on 06/19/2017 6:39:52 AM Procedure Note Interface, External Ris In - 06/19/2017 6:40 AM CDT Ventricular Rate 79 BPM Atrial Rate 79 BPM P-R Interval 160 ms QRS Duration 104 ms Q-T Interval 374 ms QTC Calculation(Bazett) 428 ms P Woden 44 degrees R Woden 23 degrees T Woden 42 degrees Normal sinus rhythm RSR' pattern in V1 Normal ECG No previous ECGs available Confirmed by MD ERIKA, VEENA ([id number]) on 06/19/2017 6:39:52 AM Performing Organization Address City/State/Zipcode Phone Number [facility] after 04/29/2017 Insurance Payer Benefit Subscriber ID Type Phone Address Plan / Group [employer] - MGD CARE CIG[employer] xxxxxxxxxxx HMO/POS HMO/POS/OP EN ACCESS
--- OUTSIDE RECORDS SUMMARY | 2018-04-30 10:16 | XMS REPORT | CCD ---
Author Author Auto Generated Organization [facility] Address Unknown Phone Unavailable Care Team Providers Care Adult Remedial Education Instructor Name Role Phone CP Unavailable Jenny Zamora CP Unavailable Na Guevara CP [phone] Lois Gao CP Unavailable ChartServer, Login CP [...]
--- OUTSIDE RECORDS SUMMARY | 2018-04-30 10:17 | XMS REPORT ---
Author Author [facility] Address Unknown Phone Unavailable Care Team Providers Care Safety Director Name Role Phone MICAH MEYER Unavailable Unavailable Problems This patient has no known problems. Allergies, Adverse Reactions, Alerts This patient has no known allergies or adverse reactions. Medications This patient has no known medications. Results Test Description Test Time Test Comments Text Results Atomic Results Result Comments RAD, CHEST, 2 VIEWS 2017-06-18 20:53:00 Reason for exam:->COUGHShould this be performed at the bedside?->No FINAL REPORT Examination: Two view Chest X-ray. CLINICAL HISTORY: Cough COMPARISON:None. The cardiomediastinal and hilar contours are unremarkable. The lung volumes are low. There is no focal consolidation, pleural effusion, pneumothorax or evidence of overt pulmonary edema. There is no acute bony abnormality. IMPRESSION: No acute abnormality. Signed: Tai Han MDReport Verified Date/Time: 06/18/2017 20:53:03 Reading Location: [address] Reading Room C METABOLIC PANEL 2017-06-18 20:51:00 SODIUM (BEAKER) (test gfcw=095) 140 meq/L 136-145 POTASSIUM (BEAKER) (test olih=573) 3.3 meq/L 3.5-5.1 CHLORIDE (BEAKER) (test dlfw=393) 104 meq/L 98-107 CO2 (BEAKER) (test efww=410) 26 meq/L 22-29 BLOOD UREA NITROGEN (BEAKER) (test flvi=316) 12 mg/dL 7-21 CREATININE (BEAKER) (test eyuc=711) 0.85 mg/dL 0.57-1.25 GLUCOSE RANDOM (BEAKER) (test midz=604) 101 mg/dL 70-105 CALCIUM (BEAKER) (test okvf=880) 9.0 mg/dL 8.4-10.2 EGFR (BEAKER) (test rkeb=8281) 95 mL/min/1.73 sq m ESTIMATED GFR IS NOT ACCURATE CREATININE CLEARANCE IN PREDICTING GLOMERULAR FILTRATION RATE. ESTIMATED GFR IS NOT APPLICABLE FOR DIALYSIS PATIENTS. CBC W/PLT COUNT & AUTO [id number] 20:37:00* Test Item Value Reference Range Comments WHITE BLOOD CELL COUNT (BEAKER) (test ligb=101) 9.2 K/ L 3.5-10.5 RED BLOOD CELL COUNT (BEAKER) (test sasn=576) 4.69 M/ L 4.63-6.08 HEMOGLOBIN (BEAKER) (test zduz=752) 14.1 GM/DL 13.7-17.5 HEMATOCRIT (BEAKER) (test fbtl=556) 42.7 % 40.1-51.0 MEAN CORPUSCULAR VOLUME (BEAKER) (test rdba=326) 91.0 fL 79.0-92.2 MEAN CORPUSCULAR HEMOGLOBIN (BEAKER) (test gofe=606) 30.1 pg 25.7-32.2 MEAN CORPUSCULAR HEMOGLOBIN CONC (BEAKER) (test vcie=042) 33.0 GM/DL 32.3-36.5 RED CELL DISTRIBUTION WIDTH (BEAKER) (test tris=793) 11.9 % 11.6-14.4 PLATELET COUNT (BEAKER) (test kljx=265) 217 K/CU MM 150-450 MEAN PLATELET VOLUME (BEAKER) (test azam=605) 10.9 fL 9.4-12.4 NUCLEATED RED BLOOD CELLS (BEAKER) (test uucx=469) 0 /100 WBC 0-0 NEUTROPHILS RELATIVE PERCENT (BEAKER) (test druc=668) 54 % LYMPHOCYTES RELATIVE PERCENT (BEAKER) (test bifu=204) 33 % MONOCYTES RELATIVE PERCENT (BEAKER) (test dbyt=885) 5 % EOSINOPHILS RELATIVE PERCENT (BEAKER) (test iobq=752) 6 % BASOPHILS RELATIVE PERCENT (BEAKER) (test fopd=408) 1 % NEUTROPHILS ABSOLUTE COUNT (BEAKER) (test iehk=211) 4.96 K/ L 1.78-5.38 LYMPHOCYTES ABSOLUTE COUNT (BEAKER) (test itfx=863) 3.07 K/ L 1.32-3.57 MONOCYTES ABSOLUTE COUNT (BEAKER) (test sicm=192) 0.47 K/ L 0.30-0.82 EOSINOPHILS ABSOLUTE COUNT (BEAKER) (test jicb=021) 0.58 K/ L 0.04-0.54 BASOPHILS ABSOLUTE COUNT (BEAKER) (test vanm=656) 0.06 K/ L 0.01-0.08 IMMATURE GRANULOCYTES-RELATIVE PERCENT (BEAKER) (test owtv=8067) 0 % 0-1 CHEST 2 VIEWS [place] [address] Patient Name: SHELBY NUGENT MR #: [id number] : 1965 Age/Sex: 51/M Req #: [id number] Adm Physician: Ordered by: MICHA MEYER MD, MD Report #: [id number] Location: ER Room/Bed: Procedure: [id number] DX/CHEST 2 VIEWS Exam Date: 06/10/17 Exam Time: 1620 REPORT STATUS: Signed EXAM: XR CHEST 2 VIEWS DATE: 06/10/2017 4:02 PM INDICATION: Chest pa in COMPARISON: None FINDINGS: Lines and Tubes: None Heart an d Mediastinum: No acute findings. Lungs and Pleura: No acute findings. Bones and Soft Tissues: No acute findings. IMPRESSION: 1. No acute car diopulmonary findings. Signed by: Dr. Magdaleno Schofield MD on 06/10/2017 4:31 PM Dictated By: MAGDALENO SCHOFIELD MD [id number] Transcribed By: SHANI on 06/10/17 1631 COPY TO: MICAH MEYER
--- OUTSIDE RECORDS SUMMARY | 2018-04-30 10:17 | XMS REPORT | Summary of Care ---
Author Author [facility] Organization [facility] Address Unknown Phone Unavailable Encounter ARLINE Cantu(KELIN) [id number] Date(s): 06/21/17 - 06/22/17 [facility] [address] [place] [address]- [phone] Encounter Diagnosis Chronic obstructive pulmonary disease with (acute) exacerbation (Final) - 06/29/17 Respiratory failure, unspecified with hypoxia (Final) - Sleep apnea, unspecified (Final) - Essential (primary) hypertension (Final) - Obesity, unspecified (Final) - Body mass index (BMI) 35.0-35.9, adult (Final) - Discharge Disposition: Home or Self Care Attending Physician: Gwendolyn Kwok MD Admitting Physician: Gwendolyn Kwok MD Vital Signs 1 2 3 Most recent to oldest [Reference Range]: 170.18 cm (06/21/17 1:27 PM) 170.18 cm (06/21/17 10:29 AM) Height 97.6 DegF (06/22/17 7:45 AM) 97.9 DegF (06/22/17 3:04 AM) 98.1 DegF (06/21/17 11:15 PM) Temperature Oral [96.4-99.1 DegF] 145/76 mmHg *HI* (06/22/17 7:45 AM) 146/84 mmHg *HI* (06/22/17 3:04 AM) 132/74 mmHg (06/21/17 11:15 PM) Blood Pressure [90-140/60-90 mmHg] 20 BRMIN (06/22/17 7:21 AM) 16 BRMIN (06/22/17 3:04 AM) 20 BRMIN (06/21/17 11:15 PM) Respiratory Rate [14-20 BRMIN] 104 bpm *HI* (06/22/17 7:45 AM) 92 bpm (06/22/17 3:04 AM) 103 bpm *HI* (06/21/17 11:15 PM) Peripheral Pulse Rate [60-100 bpm] 103.636 kg (06/21/17 1:27 PM) 103.636 kg (06/21/17 10:29 AM) Weight 35.78 m2 (06/21/17 1:27 PM) 35.78 m2 (06/21/17 10:29 AM) Body Mass Index Problem List Condition Effective Dates Status Health Status Informant Hypertension(Confirm Resolved ed) Sleep Resolved apnea(Confirmed)1 1Cpap Allergies, Adverse Reactions, Alerts Substance Reaction Severity Status NKDA Active Medications acetaminophen-hydrocodone 325 mg-5 mg oral tablet 1 tab, Route: PO, Drug Form: TAB, Dosing Weight 103.636, kg, Q4H, PRN Pain Score 4-6, Start date: 06/21/17 13:35:00 CDT, Duration: 30 day, Stop date: 07/21/17 1 3:34:00 CDT Notes: (Same as: [place] 325/5) Do not exceed 4gm/day of acetaminophen. Start Date: 06/21/17 Stop Date: 06/22/17 Status: Discontinued azithromycin + Sodium Chloride 0.9% IV 250 mL 500 mg, Route: IVPB, [id number], Dosing Weight 103.636, kg, Start date: 06/21/17 14 :00:00 CDT, Duration: 30 day, Stop date: 07/20/17 14:00:00 CDT, ABX Indication: Non-PNA Respiratory Tract Infection Notes: (Same As: Zithromax IV) Start Date: 06/21/17 Stop Date: 06/22/17 Status: Discontinued azithromycin 500 mg oral tablet 500 mg=1 tab, PO, Daily, X 5 day, # 5 tab, 0 Refill(s), Pharmacy: [facility] Pharmacy [facility] #49 Start Date: 06/22/17 Stop Date: 06/27/17 Status: Completed cefTRIAXone + sterile water 10 mL 1 gm, Route: IVP, [id number], Dosing Weight 103.636, kg, Start date: 06/21/17 14:00 :00 CDT, Duration: 30 day, Stop date: 07/20/17 14:00:00 CDT, ABX Indication: Non -PNA Respiratory Tract Infection Notes: (Same As: Rocephin).Use with 100 mL NS and infuse over 30 min MEDICA TION WASTE Product Size: 1000 mgProduct Wasted: ___ mg Start Date: 06/21/17 Stop Date: 06/22/17 Status: Discontinued dextromethorphan-guaiFENesin 10 mg-100 mg/5 mL oral liquid 10 mL, Route: PO, Drug Form: LIQ, Dosing Weight 103.636, kg, Q4H, PRN Cough, Sta rt date: 06/21/17 13:36:00 CDT, Stop date: 07/21/17 13:35:00 CDT Notes: (dextromethorphan-guaifenesin 10-100/5 ml LIQ) (Same as: Robitussin-DM) Start Date: 06/21/17 Stop Date: 06/22/17 Status: Discontinued docusate 100 mg, 1 cap, Route: PO, Drug form: CAP, BID, Dosing Weight 103.636, kg, Start date: 06/21/17 17:00:00 CDT, Duration: 30 day, Stop date: 07/21/17 9:00:00 CDT Notes: (Same as: Colace) (Do Not Crush) Start Date: 06/21/17 Stop Date: 06/22/17 Status: Discontinued DuoNeb inhalation solution 3 ml, Route: NEB, Drug Form: SOLN, Dosing Weight 103.636, kg, PRN, PRN Respirato ry Protocol, Start date: 06/21/17 11:07:00 CDT, Duration: 30 day, Stop date: 08/03 11:06:00 CDT Notes: (Same as: Duoneb) Start Date: 06/21/17 Stop Date: 06/22/17 Status: Discontinued DuoNeb inhalation solution 3 mL, Route: INHALATION, Drug Form: SOLN, Dosing Weight 103.636, kg, RQID, NOW, Start date: 06/21/17 13:36:00 CDT, Duration: 30 day, Stop date: 07/21/17 11:00:0 0 CDT Notes: (Same as: Duoneb) Start Date: 06/21/17 Stop Date: 06/22/17 Status: Discontinued ipratropium 0.02% inhalation solution 200 microgram=1 ml, INHALATION, TID, # 150 ea, 0 Refill(s), Pharmacy: [facility] #49 Start Date: 06/22/17 Status: Ordered methylPREDNISolone SODium SUCCinate 125 mg, Route: IVP, ONCE, Dosing Weight 103.636, kg, Priority: STAT, Start date: 06/21/17 11:07:00 CDT, Stop date: 06/21/17 11:07:00 CDT Start Date: 06/21/17 Stop Date: 06/21/17 Status: Completed predniSONE 10 mg oral tablet See Special Instructions, PO, Daily, Days 1-4 - 30 mg daily Days 5-8 - 20 mg daily Days 9-12 - 10 mg daily, X 12 day, # 24 tab, 0 Refill(s), Pharmacy: [facility] Start Date: 06/22/17 Stop Date: 07/04/17 Status: Completed Solu-MEDROL 40 mg, 1 mL, Route: IVP, Drug form: INJ, Q8Hnow, Dosing Weight 103.636, kg, Prio rity: NOW, Start date: 06/21/17 13:36:00 CDT, Duration: 30 day, Stop date: 07/21 5:36:00 CDT Notes: (Same as:Solu-MEDROL, A-Methapred) Start Date: 06/21/17 Stop Date: 06/22/17 Status: Discontinued Symbicort 160/4.5 inhalation aerosol with adapter 2 inhalation, Route: INHALATION, Drug Form: AERO/A, Dosing Weight 103.636, kg, R BID, NOW, Start date: 06/21/17 13:36:00 CDT, Duration: 30 day, Stop date: 8:00:00 CDT Notes: (Same as: Symbicort)WASTE: Aerosol - Return to Pharmacy Start Date: 06/21/17 Stop Date: 06/22/17 Status: Discontinued Symbicort 160/4.5 inhalation aerosol with adapter 2 puff, INHALER, BID, # 1 ea, 3 Refill(s), Pharmacy: [facility] [place] #49 Start Date: 06/22/17 Status: Ordered trazodone 50 mg oral tablet 50 mg, 1 tab, Route: PO, Drug form: TAB, Bedtime, Dosing Weight 103.636, kg, PRN Sleep, Priority: NOW, Start date: 06/21/17 23:46:00 CDT, Duration: 30 day, Stop date: 07/21/17 23:45:00 CDT Notes: (Same As: Bobby) Start Date: 06/21/17 Stop Date: 06/22/17 Status: Discontinued Results ELECTROLYTES Most recent to 1 2 oldest [Reference Range]: Sodium Lvl [135-145 136 mEq/L 140 mEq/L mEq/L] (06/22/17 3:17 AM) (06/21/17 11:36 AM) Potassium Lvl 3.8 mEq/L 3.6 mEq/L [3.5-5.1 mEq/L] (06/22/17 3:17 AM) (06/21/17 11:36 AM) Chloride Lvl [95-109 104 mEq/L 102 mEq/L mEq/L] (06/22/17 3:17 AM) (06/21/17 11:36 AM) CO2 [24-32 mEq/L] 24 mEq/L 26 mEq/L (06/22/17 3:17 AM) (06/21/17 11:36 AM) AGAP [10.0-20.0 11.8 mEq/L 15.6 mEq/L mEq/L] (06/22/17 3:17 AM) (06/21/17 11:36 AM) CHEM PANEL Most recent to 1 2 oldest [Reference Range]: Creatinine Lvl 0.86 mg/dL 0.84 mg/dL [0.50-1.40 mg/dL] (06/22/17 3:17 AM) (06/21/17 11:36 AM) eGFR 101 mL/min/1.73m2 1 102 mL/min/1.73m2 2 *NA* *NA* (06/22/17 3:17 AM) (06/21/17 11:36 AM) BUN [7-22 mg/dL] 9 mg/dL 8 mg/dL (06/22/17 3:17 AM) (06/21/17 11:36 AM) B/C Ratio [6-25] 10 (06/21/17 11:36 AM) Glucose Lvl [70-99 145 mg/dL 86 mg/dL mg/dL] *HI* (06/21/17 11:36 AM) (06/22/17 3:17 AM) Total Protein 7.3 g/dL [6.4-8.4 g/dL] (06/21/17 11:36 AM) Albumin Lvl [3.5-5.0 3.8 g/dL g/dL] (06/21/17 11:36 AM) Globulin [2.7-4.2 3.5 g/dL g/dL] (06/21/17 11:36 AM) A/G Ratio [0.7-1.6] 1.1 (06/21/17 11:36 AM) Calcium Lvl 9.1 mg/dL 8.5 mg/dL [8.5-10.5 mg/dL] (06/22/17 3:17 AM) (06/21/17 11:36 AM) ALT [0-65 unit/L] 32 unit/L (06/21/17 11:36 AM) AST [0-37 unit/L] 20 unit/L (06/21/17 11:36 AM) Alk Phos [39-136 89 unit/L unit/L] (06/21/17 11:36 AM) Bili Total [0.2-1.3 1.1 mg/dL mg/dL] (06/21/17 11:36 AM) 1Result Comment: The eGFR is calculated using the [...] from the National Kidney Disease Education Program ( NKDEP) which additionally recommends that when the eGFR is used in patients with extremes of body mass index for purposes of drug dosing, the eGFR should be mul tiplied by the estimated BMI. 2Result Comment: The eGFR is calculated using the [...] from the National Kidney Disease Education Program ( NKDEP) which additionally recommends that when the eGFR is used in patients with extremes of body mass index for purposes of drug dosing, the eGFR should be mul tiplied by the estimated BMI. CARDIAC ENZYMES Most recent to 1 2 oldest [Reference Range]: Total CK [12-191 107 unit/L unit/L] (06/21/17 11:36 AM) CK MB [0.5-3.6 <1.0 ng/mL ng/mL] (06/21/17 11:36 AM) CK MB Index <0.9 [0.0-2.5] (06/21/17 11:36 AM) Troponin-I <0.02 ng/mL [0.00-0.40 ng/mL] (06/21/17 11:36 AM) BNP [<=100 pg/mL] 19 pg/mL (06/21/17 11:36 AM) HEMATOLOGY Most recent to 1 2 oldest [Reference Range]: WBC [3.7-10.4 K/CMM] 9.0 K/CMM 9.0 K/CMM (06/22/17 3:17 AM) (06/21/17 11:36 AM) RBC [4.70-6.10 4.92 M/CMM 4.96 M/CMM M/CMM] (06/22/17 3:17 AM) (06/21/17 11:36 AM) Hgb [14.0-18.0 g/dL] 14.8 g/dL 14.8 g/dL (06/22/17 3:17 AM) (06/21/17 11:36 AM) Hct [42.0-54.0 %] 43.8 % 43.6 % (06/22/17 3:17 AM) (06/21/17 11:36 AM) MCV [80.0-94.0 fL] 89.0 fL 87.9 fL (06/22/17 3:17 AM) (06/21/17 11:36 AM) MCH [27.0-31.0 pg] 30.0 pg 29.8 pg (06/22/17 3:17 AM) (06/21/17 11:36 AM) MCHC [32.0-36.0 33.7 g/dL 33.9 g/dL g/dL] (06/22/17 3:17 AM) (06/21/17 11:36 AM) RDW [11.5-14.5 %] 12.3 % 12.5 % (06/22/17 3:17 AM) (06/21/17 11:36 AM) MPV [7.4-10.4 fL] 9.6 fL 9.3 fL (06/22/17 3:17 AM) (06/21/17 11:36 AM) Platelet [133-450 203 K/CMM 199 K/CMM K/CMM] (06/22/17 3:17 AM) (06/21/17 11:36 AM) Segs [45.0-75.0 %] 68.2 % (06/21/17 11:36 AM) Lymphocytes 22.2 % [20.0-40.0 %] (06/21/17 11:36 AM) Monocytes [2.0-12.0 4.8 % %] (06/21/17 11:36 AM) Eosinophils [0.0-4.0 4.4 % %] *HI* (06/21/17 11:36 AM) Basophils [0.0-1.0 0.4 % %] (06/21/17 11:36 AM) Segs-Bands # 6.1 K/CMM [1.5-8.1 K/CMM] (06/21/17 11:36 AM) Lymphocytes # 2.0 K/CMM [1.0-5.5 K/CMM] (06/21/17 11:36 AM) Monocytes # [0.0-0.8 0.4 K/CMM K/CMM] (06/21/17 11:36 AM) Eosinophils # 0.4 K/CMM [0.0-0.5 K/CMM] (06/21/17 11:36 AM) Immunizations No data available for this section Procedures No data available for this section Social History Social History Type Response Alcohol Never, Type Beer. Frequency: 1-2 times per month. Smoking Status Never smoker; Exposure to Tobacco Smoke None; Cigarette Smoking Last 365 Days No; Reg Smoking Cessation Counseling No entered on: 06/21/17 Assessment and Plan Extracted from: Title: Clinical Document Author: SundarWanjayden Date: 06/22/17 Kevon OLIVARES Pulmonary and Critical Care Medicine Daily Progress Note final diagnosis on discharge Bronchitis Obesity Vagal syncope Respiratory failure, hypoxemic hospital course Patient is admitted with acute bronchitis, exacerbation he was having cough shortness of breath he has multiple ER visits and start him on steroids medications were adjusted. I gave him IV steroids and DuoNeb's he had improvement in symptoms he be discharged home in stable condition follow-up in clinic in 1 week medications see reconciliation activity as tolerated Subjective: Patient seen and examined events noted no complaints. Review of Systems CONSTITUTIONAL: no fever. chills. dizziness. weakness. EYES: No pain, erythema, or discharge, blurring of vision. EAR, NOSE AND THROAT: No sore throat, URI symptoms, epistaxis,tinnitus. CARDIOVASCULAR: No chest pain. No palpitations. + lower extremity edema. RESPIRATORY: No shortness of breath, cough, pain with respiration, or pleuritic chest pain. No hemoptysis. No dyspnea. No paroxysmal nocturnal dyspnea. GASTROINTESTINAL: Normal appetite. No dysphagia, nausea, vomiting, diarrhea. No pain. No bleeding. GENITOURINARY: No frequency, urgency, nocturia, hematuria or dysuria. MUSCULOSKELETAL: No arthralgias or myalgias. INTEGUMENTARY: No swelling, bruising, contusions,abrasions, lymphangitis. NEUROLOGIC: No headache, neck pain, numbness or tingling of the extremities. or weakness. METABOLIC:No history of thyroid, diabetes or adrenal problems. HEMATOLOGICAL: No bleeding, petechiae,bruising. ALLERGY: No asthma, urticaria. PSYCHIATRIC: No confusion or depression General Examination Gen: Alert No apparent distress. HEENT: PERRL NECK: No JVD, No Carotid Bruit. Respiratory: No respiratory distress, No evidence of accesory muscle use. Clear to ausculation bilaterally in all zones. No rales or crackles or Wheezes Cardiovascular. S1S2 + No Murmers Regular Rate rythm Abdominal: Soft Non tender. NO organomegaly Extremities: No pedal edema, no cyanosis no clubbing Neurology: Alert No focal deficits Skin: No rash VitalsTmp(F)[id number] 06/22 07:[id number]/76--89--- 06/22 07:21 2091--- 06/22 03:[id number]/[id number]--- 06/21 23:[id number] 2.0L/m 06/21 19:[id number]/[id number]--- 24 Hr Tmax: 98.1F (36.72c) at 06/21 23:15Vital Signs are the last 5 in the past 48 hours. (all previously charted lines have been discontinued) I&ORecordInOutBal 06/623hr Tot 0 0 0 06/523hr Tot 283 0 283 Radiology Labs Labs (Last four charted values) WBC 9.0(JUN 22)9.0(JUN 21) Hgb 14.8(JUN 22)14.8(JUN 21) Hct 43.8(JUN 22)43.6(JUN 21) Plt 203(JUN 22)199(JUN 21) Na 136(JUN 22)140(JUN 21) K 3.8(JUN 22)3.6(JUN 21) CO2 24(JUN 22)26(JUN 21) Cl 104(JUN 22)102(JUN 21) Cr 0.86(JUN 22)0.84(JUN 21) BUN 9(JUN 22)8(JUN 21) Glucose Random H 145(JUN 22)86(JUN 21) Ca 9.1(JUN 22)8.5(JUN 21) Troponin <0.02(JUN 21) CK MB <1.0(JUN 21) Total CK 107(JUN 21) DISCHARGE time 40 min Gwendolyn Kwok MD MPH FCCP Extracted from: Title: Clinical Document Author: Gwendolyn Kwok Date: 06/21/17 Kevon OLIVARES PULMONARY AND CRITICAL CARE CONSULT NOTE Reason for consult: cough and syncope History of presenting illness: It is a 51-year-old male who has no past medical history of smoking or respiratory illness was brought in by his after he had a acute syncopal episode. He has been dealing with bronchitis type of symptoms over the past 3 weeks and has had multiple visits to the ER he was actually to see me in clinic today. He however was brought in by his after he had an episode of syncope while having a coughing bout. As a part of his workup he ended up having a CT chest which was fairly unrevealing for any acute infiltrates he has received a course of antibiotics without any significant improvement. He is a non-smoker, denies having any respiratory issues prior to current presentation is no family history of respiratory problems. Of note he is moderately obese, no sick contacts PAST MEDICAL HISTORY Sleep apnea Hypertension FAMILY HISTORY Mother: Cancer, Breast; Hypertension; Thyroid cancer.. SURGICAL HISTORY SOCIAL HISTORY Alcohol Details: Never, Type Beer. Frequency: 1-2 times per month. Tobacco Details: Use: Never smoker. Tobacco smoke exposure: None. Did the Patient Smoke Cigarettes Anytime During the Last 365 Days? No. Cessation Counseling Provided? No. Lines, Tubes, and Drains: 06/21/2017 11:02 Peripheral Lines: Antecubital Left 20 gauge Over the needle catheter ALLERGIES Allergies (1) ActiveReaction NKDANone Documented Review of Systems CONSTITUTIONAL: no fever. chills. dizziness. weakness. EYES: No pain, erythema, or discharge, blurring of vision. EAR, NOSE AND THROAT: No sore throat, URI symptoms, epistaxis,tinnitus. CARDIOVASCULAR: No chest pain. No palpitations. + lower extremity edema. RESPIRATORY: No shortness of breath, cough, pain with respiration, or pleuritic chest pain. No hemoptysis. No dyspnea. No paroxysmal nocturnal dyspnea. GASTROINTESTINAL: Normal appetite. No dysphagia, nausea, vomiting, diarrhea. No pain. No bleeding. GENITOURINARY: No frequency, urgency, nocturia, hematuria or dysuria. MUSCULOSKELETAL: No arthralgias or myalgias. INTEGUMENTARY: No swelling, bruising, contusions,abrasions, lymphangitis. NEUROLOGIC: No headache, neck pain, numbness or tingling of the extremities. or weakness. METABOLIC:No history of thyroid, diabetes or adrenal problems. HEMATOLOGICAL: No bleeding, petechiae,bruising. ALLERGY: No asthma, urticaria. PSYCHIATRIC: No confusion or depression GENERAL EXAMINATION Vitals and Temp: VitalsTmp(F)[id number] 06/21 18:14 1899 21% 06/21 16:[id number]--- 06/21 15:07 2095--- 06/21 13:[id number]--- 06/21 12:[id number]/[id number] 2.0L/m 24 Hr Tmax: 98.9F (37.17c) at 06/21 10:29Vital Signs are the last 5 in the past 48 hours. General: Lying in bed awake interactive not in any distress eyes: Sclera anicteric, conjunctiva pink ENT: Tongue moist neck: Supple, no use of accessory muscles, no JVD Heart: Regular rate and rhythm, S1 and S2 heard, no murmurs Lungs: Clear to auscultation bilaterally, no evidence of accessory muscle use Abdomen: Soft, obese, Non tender. BS + : deferred Extremities: no evidence of edema in legs, hands and feet are cool Skin: No rashes,or bruising Neurologic: AO X 3, no focal deficit. Psych : normal mood and affect MEDICATION Medications (9) Active Scheduled: (6) albuterol-ipratropium 2.5 mg-0.5 mg/3 ml LIZETT 3 mL, INHALATION, RQID azithromycin INJ VL + sodium chloride 0.9% INJ 250 mL 500 mg, IVPB, [id number] Budesonide/Formoterol 160-4.5 microgram 6gm AERO/A inh 2 inhalation, INHALATION, RBID cefTRIAXone 1 gm INJ VL + water for INJection, sterile 10 mL 1 gm, IVP, [id number] docusate sodium 100 mg CAP 100 mg 1 cap, PO, BID methylPREDNISolone SOD SUCC 40mg INJ 40 mg 1 mL, IVP, Q8Hnow Continuous: (0) PRN: (3) acetaminophen-hydrocodone 325 mg-5 mg tab 1 tab, PO, Q4H albuterol-ipratropium 2.5 mg-0.5 mg/3 ml LIZETT 3 ml, NEB, PRN guaiFENesin-dextromethorphan 10ml syrp 10 mL, PO, Q4H Home Medications (2) Active albuterol 90 mcg/inh inhalation aerosol 2 puff, PRN, INHALATION, QID Cheratussin AC oral syrup 5-10 ml, PRN, PO, Q4H LABS Labs (Last four charted values) WBC 9.0(JUN 21) Hgb 14.8(JUN 21) Hct 43.6(JUN 21) Plt 199(JUN 21) Na 140(JUN 21) K 3.6(JUN 21) CO2 26(JUN 21) Cl 102(JUN 21) Cr 0.84(JUN 21) BUN 8(JUN 21) Glucose Random 86(JUN 21) Ca 8.5(JUN 21) Troponin <0.02(JUN 21) CK MB <1.0(JUN 21) Total CK 107(JUN 21) Radiology IMPRESSION: Bronchitis Obesity Vagal syncope Respiratory failure, hypoxemic PLAN : Will be started on steroids as he has had recurrent persistent bronchitis with no improvement he will be started on antitussives he is already been getting codeine will start him on some pain medications due to chest tightness likely from I will admit him to observation, will start him on steroids as well as duo nebs. If he is weaned off oxygen he might be able to go home tomorrow. Full Code [Ordered] Gwendolyn Kwok MD MPH Pulmonary and Critical Care Medicine
--- OUTSIDE RECORDS SUMMARY | 2018-04-30 10:17 | XMS REPORT | Summary of Care ---
Author Author [facility] Organization [facility] Address Unknown Phone Unavailable Encounter ARLINE Cantu(FIN) [id number] Date(s): 06/18/17 - 06/19/17 [facility] [address] [place] [address]- Encounter Diagnosis Cough (Discharge Diagnosis) - 06/19/17 Cough (Final) - 06/26/17 Other chest pain (Final) - Discharge Disposition: Home or Self Care Attending Physician: London Wolf DO Vital Signs Most recent to 1 2 oldest [Reference Range]: Temperature Oral 97.8 DegF 97.9 DegF [96.4-99.1 DegF] (06/19/17 2:22 AM) (06/18/17 9:47 PM) Blood Pressure 150/78 mmHg 145/85 mmHg [90-140/60-90 mmHg] *HI* *HI* (06/19/17 2:22 AM) (06/18/17 9:47 PM) Respiratory Rate 20 BRMIN 18 BRMIN [14-20 BRMIN] (06/19/17 2:22 AM) (06/18/17 9:47 PM) Peripheral Pulse 89 bpm 78 bpm Rate [60-100 bpm] (06/19/17 2:22 AM) (06/18/17 9:47 PM) Weight 104.091 kg (06/18/17 9:47 PM) Problem List Condition Effective Dates Status Health Status Informant Hypertension(Confirm Resolved ed) Sleep Resolved apnea(Confirmed)1 1Cpap Allergies, Adverse Reactions, Alerts Substance Reaction Severity Status NKDA Active Medications Cheratussin AC oral syrup 5-10 ml, PO, Q4H, PRN for cough, X 5 day, # 240 mL, 0 Refill(s) Start Date: 06/19/17 Stop Date: 06/24/17 Status: Completed [place] 5/325 oral tablet 2 tab, Route: PO, Drug Form: TAB, Dosing Weight 104.091, kg, ONCE, Start date: 0 06/19/17 0:09:00 CDT, Stop date: 06/19/17 0:09:00 CDT Notes: (Same as: [place] 325/5) Do not exceed 4gm/day of acetaminophen. Start Date: 06/19/17 Stop Date: 06/19/17 Status: Completed Saline Flush 0.9% 10 mL, Route: IVP, Drug Form: INJ, Dosing Weight 104.091, kg, PRN, PRN Line Flus h, Start date: 06/19/17 0:09:00 CDT, Duration: 30 day, Stop date: 07/19/17 0:08: 00 CDT Notes: (Same as: BD Posiflush) Start Date: 06/19/17 Stop Date: 06/19/17 Status: Discontinued Sodium Chloride 0.9% (Bolus) IV 1,000 mL, 1000 ml/hr, Infuse Over: 1 hr, Route: IV, 1,000, Drug form: INJ, ONCE, Priority: STAT, Dosing Weight 104.091 kg, Start date: 06/19/17 0:09:00 CDT, Stop date: 06/19/17 0:09:00 CDT Start Date: 06/19/17 Stop Date: 06/19/17 Status: Completed Results ELECTROLYTES Most recent to 1 oldest [Reference Range]: Sodium Lvl [135-145 141 mEq/L mEq/L] (06/19/17 12:22 AM) Potassium Lvl 3.5 mEq/L [3.5-5.1 mEq/L] (06/19/17 12:22 AM) Chloride Lvl [95-109 106 mEq/L mEq/L] (06/19/17 12:22 AM) CO2 [24-32 mEq/L] 29 mEq/L (06/19/17 12:22 AM) AGAP [10.0-20.0 9.5 mEq/L mEq/L] *LOW* (06/19/17 12:22 AM) CHEM PANEL Most recent to 1 oldest [Reference Range]: Creatinine Lvl 0.93 mg/dL [0.50-1.40 mg/dL] (06/19/17 1222 AM) eGFR 95 mL/min/1.73m2 1 *NA* (06/19/17 AM) BUN [7-22 mg/dL] 11 mg/dL (06/19/17: AM) B/C Ratio [6-25] 12 (06/19/17 12: AM) Glucose Lvl [70-99 124 mg/dL mg/dL] *HI* (06/19/17 AM) Total Protein 6.9 g/dL [6.4-8.4 g/dL] (06/19/17 AM) Albumin Lvl [3.5-5.0 3.6 g/dL g/dL] (06/19/17 AM) Globulin [2.7-4.2 3.3 g/dL g/dL] (06/19/17 AM) A/G Ratio [0.7-1.6] 1.1 (06/19/17 AM) Calcium Lvl 7.9 mg/dL [8.5-10.5 mg/dL] *LOW* (06/19/17: AM) ALT [0-65 unit/L] 28 unit/L (06/19/17:22 AM) AST [0-37 unit/L] 22 unit/L (06/19/17:22 AM) Alk Phos [39-136 97 unit/L unit/L] (06/19/17 AM) Bili Total [0.2-1.3 0.7 mg/dL mg/dL] (06/19/17:22 AM) 1Result Comment: The eGFR is calculated [...] BMI. CARDIAC ENZYMES Most recent to 1 oldest [Reference Range]: Troponin-I <0.02 ng/mL [0.00-0.40 ng/mL] (06/19/17 AM) HEMATOLOGY Most recent to 1 oldest [Reference Range]: WBC [3.7-10.4 K/CMM] 10.2 K/CMM (06/19/17 AM) RBC [4.70-6.10 4.80 M/CMM M/CMM] (06/19/17 AM) Hgb [14.0-18.0 g/dL] 14.0 g/dL (06/19/17 AM) Hct [42.0-54.0 %] 42.5 % (06/19/17 AM) MCV [80.0-94.0 fL] 88.4 fL (06/19/17 AM) MCH [27.0-31.0 pg] 29.1 pg (06/19/17 AM) MCHC [32.0-36.0 33.0 g/dL g/dL] (06/19/17 AM) RDW [11.5-14.5 %] 12.7 % (06/19/17 AM) MPV [7.4-10.4 fL] 9.5 fL (06/19/17 AM) Platelet [133-450 225 K/CMM K/CMM] (06/19/17 AM) Segs [45.0-75.0 %] 59.9 % (06/19/17 AM) Lymphocytes 30.1 % [20.0-40.0 %] (06/19/17 AM) Monocytes [2.0-12.0 3.8 % %] (06/19/17 AM) Eosinophils [0.0-4.0 5.6 % %] *HI* (06/19/17 AM) Basophils [0.0-1.0 0.6 % %] (4/3/18 12:22 AM) Segs-Bands # 6.1 K/CMM [1.5-8.1 K/CMM] (06/19/17 12:22 AM) Lymphocytes # 3.1 K/CMM [1.0-5.5 K/CMM] (06/19/17 12:22 AM) Monocytes # [0.0-0.8 0.4 K/CMM K/CMM] (06/19/17 12:22 AM) Eosinophils # 0.6 K/CMM [0.0-0.5 K/CMM] *HI* (06/19/17 12:22 AM) Basophils # [0.0-0.2 0.1 K/CMM K/CMM] (06/19/17 12:22 AM) Immunizations No data available for this section Procedures No data available for this section Social History Social History Type Response Alcohol Never, Type Beer. Frequency: 1-2 times per month. Smoking Status Never smoker; Exposure to Tobacco Smoke None; Cigarette Smoking Last 365 Days No; Reg Smoking Cessation Counseling No entered on: 06/21/17 Assessment and Plan No data available for this section
--- OUTSIDE RECORDS SUMMARY | 2018-04-30 10:17 | XMS REPORT | CCD ---
Author Author Auto Generated Organization [facility] Address Unknown Phone Unavailable Care Team Providers Care Die Polisher Name Role Phone Alberto Westbrook CP Unavailable Allergies, Adverse Reactions, Alerts Substance Reaction Status NKDA Active Problem List Condition Effective Dates Status Hypertension Resolved Sleep apnea1 Resolved 1Cpap Medications Medication Instructions Start Date End Date Status albuterol 0.083% 7.47 mg, Route: NEB, Drug form: 08/25/2012 08/25/2012 Completed inhalation solution SOLN, ONCE, Dosing Weight 102.727, kg, Priority: STAT, Start date: 08/25/12 10:51:00, Stop date: 08/25/12 10:51:00 Azithromycin 5 Day 250 mg, PO, Daily, Take 2 tablets 08/25/2012 08/30/2012 Ordered Dose Pack 250 mg by mouth the first day then 1 oral tablet tablet by mouth days 2-5, 6 tab, Substitution Allowed Take 2 tablets by mouth the first day then 1 tablet by mouth days 2-5 albuterol CFC free 2 puff, INHALATION, Q6H, PRN, 9 gm, 08/25/2012 Ordered 90 mcg/inh for wheezing, Substitution Allowed, inhalation aerosol Maintenance, AERO with adapter Vital Signs Most recent to oldest [Reference Range]: 1 Height 167.64 cm (08/25/2012 10:06:00) Weight 102.727 kg (08/25/2012 10:06:00)
--- OUTSIDE RECORDS SUMMARY | 2018-04-30 10:17 | XMS REPORT | Summary of Care ---
Author Author [facility] Organization [facility] Address Unknown Phone Unavailable Encounter ARLINE Cantu(FIN) [id number] Date(s): 06/15/17 - 06/15/17 [facility] [address] [place] [address]- [phone] Encounter Diagnosis Cough (Discharge Diagnosis) - 06/15/17 Cough (Final) - 06/21/17 Discharge Disposition: Home or Self Care Attending Physician: Kushal Lujan DO Vital Signs Most recent to 1 oldest [Reference Range]: Temperature Oral 98.5 DegF [96.4-99.1 DegF] (06/15/17 7:40 PM) Blood Pressure 149/82 mmHg [90-140/60-90 mmHg] *HI* (06/15/17 7:40 PM) Respiratory Rate 20 BRMIN [14-20 BRMIN] (06/15/17 7:40 PM) Peripheral Pulse 86 bpm Rate [60-100 bpm] (06/15/17 7:40 PM) Problem List Condition Effective Dates Status Health Status Informant Hypertension(Confirm Resolved ed) Sleep Resolved apnea(Confirmed)1 1Cpap Allergies, Adverse Reactions, Alerts Substance Reaction Severity Status NKDA Active Medications albuterol 90 mcg/inh inhalation aerosol 2 puff, INHALATION, QID, PRN Wheezing, # 17 gm, 0 Refill(s) Start Date: 06/15/17 Status: Ordered Saline Flush 0.9% 10 mL, Route: IVP, Drug Form: INJ, Dosing Weight 102.727, kg, PRN, PRN Line Flus h, Start date: 06/15/17 19:42:00 CDT, Duration: 30 day, Stop date: 07/15/17 19:4 1:00 CDT Notes: (Same as: BD Posiflush) Start Date: 06/15/17 Stop Date: 06/15/17 Status: Discontinued Results ELECTROLYTES Most recent to 1 oldest [Reference Range]: Sodium Lvl [135-145 137 mEq/L mEq/L] (06/15/17 7:54 PM) Potassium Lvl 3.4 mEq/L [3.5-5.1 mEq/L] *LOW* (06/15/17 7:54 PM) Chloride Lvl [95-109 103 mEq/L mEq/L] (06/15/17 7:54 PM) CO2 [24-32 mEq/L] 28 mEq/L (06/15/17 7:54 PM) AGAP [10.0-20.0 9.4 mEq/L mEq/L] *LOW* (06/15/17 7:54 PM) CHEM PANEL Most recent to 1 oldest [Reference Range]: Creatinine Lvl 1.08 mg/dL [0.50-1.40 mg/dL] (06/15/17 7:54 PM) eGFR 80 mL/min/1.73m2 1 *NA* (06/15/17 7:54 PM) BUN [7-22 mg/dL] 11 mg/dL (06/15/17 7:54 PM) B/C Ratio [6-25] 10 (06/15/17 7:54 PM) Glucose Lvl [70-99 181 mg/dL mg/dL] *HI* (06/15/17 7:54 PM) Total Protein 7.4 g/dL [6.4-8.4 g/dL] (06/15/17 7:54 PM) Albumin Lvl [3.5-5.0 4.1 g/dL g/dL] (06/15/17 7:54 PM) Globulin [2.7-4.2 3.3 g/dL g/dL] (06/15/17 7:54 PM) A/G Ratio [0.7-1.6] 1.2 (06/15/17 7:54 PM) Calcium Lvl 8.8 mg/dL [8.5-10.5 mg/dL] (06/15/17 7:54 PM) ALT [0-65 unit/L] 36 unit/L (06/15/17 7:54 PM) AST [0-37 unit/L] 15 unit/L (06/15/17 7:54 PM) Alk Phos [39-136 108 unit/L unit/L] (06/15/17 7:54 PM) Bili Total [0.2-1.3 0.7 mg/dL mg/dL] (06/15/17 7:54 PM) 1Result Comment: The eGFR is calculated using [...] Most recent to 1 oldest [Reference Range]: Total CK [12-191 70 unit/L unit/L] (06/15/17 7:54 PM) CK MB [0.5-3.6 0.8 ng/mL ng/mL] (06/15/17 7:54 PM) CK MB Index 1.1 [0.0-2.5] (06/15/17 7:54 PM) Troponin-I <0.02 ng/mL [0.00-0.40 ng/mL] (06/15/17 7:54 PM) BNP [<=100 pg/mL] 26 pg/mL (06/15/17 7:54 PM) HEMATOLOGY Most recent to 1 oldest [Reference Range]: WBC [3.7-10.4 K/CMM] 9.1 K/CMM (06/15/17 7:54 PM) RBC [4.70-6.10 4.84 M/CMM M/CMM] (06/15/17 7:54 PM) Hgb [14.0-18.0 g/dL] 14.7 g/dL (06/15/17 7:54 PM) Hct [42.0-54.0 %] 42.9 % (3/30/18 7:54 PM) MCV [80.0-94.0 fL] 88.5 fL (06/15/17 7:54 PM) MCH [27.0-31.0 pg] 30.4 pg (06/15/17 7:54 PM) MCHC [32.0-36.0 34.4 g/dL g/dL] (06/15/17 7:54 PM) RDW [11.5-14.5 %] 12.6 % (06/15/17 7:54 PM) MPV [7.4-10.4 fL] 9.8 fL (06/15/17 7:54 PM) Platelet [133-450 211 K/CMM K/CMM] (06/15/17 7:54 PM) Segs [45.0-75.0 %] 73.8 % (06/15/17 7:54 PM) Lymphocytes 22.3 % [20.0-40.0 %] (06/15/17 7:54 PM) Monocytes [2.0-12.0 3.0 % %] (06/15/17 7:54 PM) Eosinophils [0.0-4.0 0.5 % %] (06/15/17 7:54 PM) Basophils [0.0-1.0 0.4 % %] (06/15/17 7:54 PM) Segs-Bands # 6.7 K/CMM [1.5-8.1 K/CMM] (06/15/17 7:54 PM) Lymphocytes # 2.0 K/CMM [1.0-5.5 K/CMM] (06/15/17 7:54 PM) Monocytes # [0.0-0.8 0.3 K/CMM K/CMM] (06/15/17 7:54 PM) PT [12.0-14.7 12.0 seconds seconds] (06/15/17 7:54 PM) INR [0.85-1.17] 0.89 (06/15/17 7:54 PM) D-Dimer <0.27 ug/mL FEU *NA* (06/15/17 7:54 PM) PTT [22.9-35.8 26.3 seconds seconds] (06/15/17 7:54 PM) Immunizations No data available for this section [...]
[2018-04-30 14:00] VITALS: BP 120/62
== END | disposition home or self-care (01) ==
LOC: OR 10:14
PROVIDERS: ATTEND Internal Medicine Gastroenterology
DX: K29.50 Unspecified chronic gastritis without bleeding (principal); D12.3 Benign neoplasm of transverse colon; D12.4 Benign neoplasm of descending colon; K29.80 Duodenitis without bleeding; K21.9 Gastro-esophageal reflux disease without esophagitis; K44.9 Diaphragmatic hernia without obstruction or gangrene; K57.30 Diverticulosis of large intestine without perforation or abscess without bleeding; K64.8 Other hemorrhoids; B96.81 Helicobacter pylori [H. pylori] as the cause of diseases classified elsewhere; R19.5 Other fecal abnormalities; H91.90 Unspecified hearing loss, unspecified ear; J45.909 Unspecified asthma, uncomplicated; G47.33 Obstructive sleep apnea (adult) (pediatric); R00.1 Bradycardia, unspecified; Z01.810 Encounter for preprocedural cardiovascular examination; Z68.34 Body mass index [BMI] 34.0-34.9, adult
CPT/HCPCS: 43239; 45380; 45384; 93005; J2250; J2704 ×2

== ENCOUNTER 2019-09-14 18:48 | Emergency (ER) | payer OTHER ==
[~2019-09-14] VITALS: Ht 170.2 cm; Wt 104.3 kg
[~2019-09-14 18:48] MED LIST changes: -FENTANYL CITRATE/PF 100MCG/2 ML INJ ONE; -MIDAZOLAM HCL 2 MG/2 ML VIAL ONE; -PROPOFOL IV EMULSION 10 MG/ML 20 ML VIAL ONE; -PROPOFOL IV EMULSION 10 MG/ML 50 ML VIAL ONE
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
--- NOTE | 2019-09-14 19:54 | Diagnostic Imaging Report ---
Examination: Single AP view of the chest. COMPARISON: Chest two views 06/10/2017 INDICATION: Cough, shortness of breath, runny nose for 4 days IMPRESSION: 1. Lines and Tubes: None 2. Lungs are grossly clear. No consolidation or effusion. 3. Cardiomediastinal silhouette is normal. Pulmonary vasculature is normal. 4. No acute bony abnormalities. Signed by: Dr. Edd Zapien M.D. on 09/14/2019 7:51 PM
== END 2019-09-14 20:10 | disposition home or self-care (01) ==
LOC: FSED 18:48
DX: R09.89 Other specified symptoms and signs involving the circulatory and respiratory systems (principal); J20.9 Acute bronchitis, unspecified; R51 Headache
CPT/HCPCS: 71045; 93005; 99283

== ENCOUNTER 2020-07-27 17:08 | Emergency (ER) | payer BC, OTHER ==
[~2020-07-27] VITALS: Ht 170.2 cm; Wt 99.8 kg
[2020-07-27] MEDS ORDERED: ONDANSETRON HCL INJ 2MG/ML 2ML 2 MG/ML VIAL IV STA (18:04)
[2020-07-27] MEDS ORDERED: PANTOPRAZOLE 40 MG 10ML VIAL IV STA (18:04)
[2020-07-27] MEDS ORDERED: DICYCLOMINE HCL 20 MG/2 ML VIAL IM ONE (18:15)
[2020-07-27 18:48] LABS: BASOPHILS % 0.6 % (0.0-1.0); EOSINOPHILS # (AUTO) 0.1 (0.0-0.4); EOSINOPHILS % 1.7 % (0.0-6.0); HEMATOCRIT 42.1 % (38.2-49.6); LYMPHOCYTES # (AUTO) 1.1 (1.0-3.2); LYMPHOCYTES % 21.3 % (18.0-39.1); MEAN CORPUSCULAR HEMOGLOBIN 29.2 pg (28-32); MEAN CORPUSCULAR HGB CONC 33.3 g/dL (31-35); MEAN CORPUSCULAR VOLUME 87.9 fL (81-99); MONOCYTES # (AUTO) 0.4 (0.2-0.8); MONOCYTES % 7.1 % (4.4-11.3); NEUTROPHILS # (AUTO) 3.6 (2.1-6.9); NEUTROPHILS % 69.1 % (38.7-80.0); PLATELET COUNT 175 x10e3/uL (140-360); RED BLOOD COUNT 4.79 x10e6/uL (4.3-5.7); RED CELL DISTRIBUTION WIDTH 11.6 % (11.7-14.4)
[2020-07-27 19:10] LABS: AMYLASE 76 U/L (25-125); LIPASE 27 U/L (8-78)
[2020-07-27 19:12] LABS: ALANINE AMINOTRANSFERASE 20 IU/L (0-55); ALBUMIN 4.1 g/dL (3.5-5.0); ALBUMIN/GLOBULIN RATIO 1.5 (0.8-2.0); ALKALINE PHOSPHATASE 91 IU/L (40-150); ANION GAP 13.9 mmol/L (8-16); BLOOD UREA NITROGEN 9 mg/dL (7-26); BUN/CREATININE RATIO 7 (6-25); CALCIUM 9.3 mg/dL (8.4-10.2); CARBON DIOXIDE 25 mmol/L (22-29); CHLORIDE 107 mmol/L (98-107); CREATININE, SERUM 1.21 mg/dL (0.72-1.25); EST GLOMERULAR FILTRATION RATE > 60 ML/MIN (60-); GLUCOSE 94 mg/dL (74-118); POTASSIUM 3.9 mmol/L (3.5-5.1); SODIUM 142 mmol/L (136-145)
[2020-07-27 19:15] LABS: CLARITY,URINE CLEAR (CLEAR); COLOR,URINE YELLOW (YELLOW)
[2020-07-27 19:16] LABS: KETONES,URINE TRACE (NEGATIVE); LEUKOCYTE ESTERASE ,URINE NEGATIVE (NEGATIVE); NITRITE,URINE NEGATIVE (NEGATIVE); PROTEIN,URINE DIPSTICK 1+ (NEGATIVE); URINE UROBILINOGEN 0.2 mg/dL (0.2 - 1)
[2020-07-27 19:36] LABS: BACTERIA,URINE RARE /HPF; MUCUS,URINE FEW (RARE); RBC,URINE 0-5 /HPF (0-5); WBC,URINE (MAN) 0-5 /HPF (0-5)
[2020-07-27] MEDS ORDERED: SODIUM CHLORIDE 0.9% 50ML 50 ML ONE (19:36)
[2020-07-27] MEDS ORDERED: IOPAMIDOL 370 MG/ML 200 ML INFUS..BTL INJ ONE (19:36)
[2020-07-27 21:00] VITALS: BP 116/71
== END 2020-07-27 21:12 | disposition home or self-care (01) ==
LOC: ER 18:08
DX: R10.33 Periumbilical pain (principal); K52.9 Noninfective gastroenteritis and colitis, unspecified
CPT/HCPCS: 36415; 74177; 80053; 81001; 82150; 83690; 85025; 99284; C9113; J0500; J2405; Q9967

== ENCOUNTER → 2021-01-27 | Outpatient (CLI) | payer BC | LOC: RAD 14:45 | PROVIDERS: ATTEND Family Medicine | DX: J40 Bronchitis, not specified as acute or chronic (principal) | CPT/HCPCS: 71046 ==

== ENCOUNTER 2021-05-16 07:45 | Emergency (ER) | payer BC ==
[~2021-05-16] VITALS: Ht 170.2 cm; Wt 99.8 kg
[2021-05-16] MEDS ORDERED: ASPIRIN 81 MG CHEW TAB PO ONE (08:00)
[2021-05-16 08:05] LABS: BASOPHILS # (AUTO) 0.1 (0.0-0.1); BASOPHILS % 0.7 % (0.0-1.0); EOSINOPHILS # (AUTO) 0.1 (0.0-0.4); EOSINOPHILS % 1.6 % (0.0-6.0); HEMATOCRIT 41.6 % (38.2-49.6); HEMOGLOBIN 14.1 g/dL (14.0-18.0); LYMPHOCYTES # (AUTO) 1.7 (1.0-3.2); LYMPHOCYTES % 19.5 % (18.0-39.1); MEAN CORPUSCULAR HEMOGLOBIN 29.4 pg (28-32); MEAN CORPUSCULAR HGB CONC 33.9 g/dL (31-35); MEAN CORPUSCULAR VOLUME 86.8 fL (81-99); MONOCYTES # (AUTO) 0.4 (0.2-0.8); MONOCYTES % 4.7 % (4.4-11.3); NEUTROPHILS # (AUTO) 6.5 (2.1-6.9); NEUTROPHILS % 73.3 % (38.7-80.0); PLATELET COUNT 193 x10e3/uL (140-360); RED BLOOD COUNT 4.79 x10e6/uL (4.3-5.7); RED CELL DISTRIBUTION WIDTH 11.4 % (11.7-14.4)
[2021-05-16 08:20] LABS: AMPHETAMINES SCREEN,URINE NEGATIVE (NEGATIVE); BENZODIAZEPINES SCREEN,URINE NEGATIVE (NEGATIVE); PHENCYCLIDINE SCREEN,URINE NEGATIVE (NEGATIVE)
[2021-05-16 08:27] LABS: ALBUMIN 4.1 g/dL (3.5-5.0); ALBUMIN/GLOBULIN RATIO 1.5 (0.8-2.0); CREATININE, SERUM 0.78 mg/dL (0.72-1.25)
[2021-05-16 08:33] LABS: CREATINE KINASE MB 1.5 ng/mL (0-5.0)
[2021-05-16] MEDS ORDERED: ACETAMINOPHEN 325 MG TAB PO STA (08:39)
[2021-05-16] MEDS ORDERED: SODIUM CHLORIDE 0.9% 100 ML ONE (09:08)
[2021-05-16] MEDS ORDERED: IOPAMIDOL 370 MG/ML 200 ML INFUS..BTL INJ ONE (09:08)
[2021-05-16] MEDS ORDERED: MECLIZINE HCL 12.5 MG TAB PO ONE (09:30)
[2021-05-16 10:32] LABS: CREATINE KINASE MB 1.5 ng/mL (0-5.0)
[2021-05-16 10:46] VITALS: BP 142/84
== END 2021-05-16 10:58 | disposition home or self-care (01) ==
LOC: ER 07:54
DX: R42 Dizziness and giddiness (principal); R20.2 Paresthesia of skin
CPT/HCPCS: 36415; 70450; 70496; 71045; 80053; 80307; 82550; 82553; 83880; 84484; 85025; 93005; 99284; J7050; J8597; Q9967

== ENCOUNTER 2021-06-17 16:30 | Emergency (ER) | payer BC ==
[~2021-06-17] VITALS: Ht 170.2 cm; Wt 103.1 kg
[2021-06-17] MEDS ORDERED: DEXAMETHASONE SOD PHOS INJ 4 MG/ML SDV IM ONE (17:15)
[2021-06-17] MEDS ORDERED: DEXAMETHASONE SOD PHOS INJ 4 MG/ML SDV ONE (17:26)
[2021-06-17] MEDS ORDERED: VENTOLIN HFA18 GM INH (17:53)
[2021-06-17] MEDS ORDERED: SYMBICORT 16010.2 GM INH (17:54)
== END 2021-06-17 18:07 | disposition home or self-care (01) ==
LOC: FSED 17:00
DX: R05.9 Cough, unspecified (principal); J45.21 Mild intermittent asthma with (acute) exacerbation
CPT/HCPCS: 96372; 99282; J1100

== ENCOUNTER → 2021-07-01 | Outpatient (CLI) | payer BC ==
[~2021-07-01] MED LIST changes: +SYMBICORT 16010.2 GM INH; +VENTOLIN HFA18 GM INH
== END ==
LOC: RAD 08:59
PROVIDERS: ATTEND Family Medicine
DX: R05.3 Chronic cough (principal)
CPT/HCPCS: 71046

== ENCOUNTER → 2022-04-04 | Day surgery (SDC) | payer BC ==
[~2022-04-04] MED LIST changes: +ONE DAILY COMP1 EACH PO; +POVIDONE IODINE 0.05% 0.05 % ML PO ONE; +PROPOFOL IV EMULSION 10 MG/ML 20 ML VIAL ONE
[2022-04-04 16:00] VITALS: BP 147/97
== END | disposition home or self-care (01) ==
LOC: OR 13:09
PROVIDERS: ATTEND Internal Medicine Gastroenterology
DX: Z12.11 Encounter for screening for malignant neoplasm of colon (principal); D12.0 Benign neoplasm of cecum; D12.5 Benign neoplasm of sigmoid colon; K57.30 Diverticulosis of large intestine without perforation or abscess without bleeding; K64.8 Other hemorrhoids; R14.0 Abdominal distension (gaseous); K21.9 Gastro-esophageal reflux disease without esophagitis; G47.33 Obstructive sleep apnea (adult) (pediatric); Z68.35 Body mass index [BMI] 35.0-35.9, adult; Z80.0 Family history of malignant neoplasm of digestive organs
CPT/HCPCS: 45384; J2704

== ENCOUNTER → 2023-12-08 | Day surgery (SDC) | payer BC, OTHER ==
[~2023-12-08] MED LIST changes: +FAMOTIDINE20 MG PO; +FENTANYL CITRATE/PF 100MCG/2 ML INJ ONE; +LIDOCAINE HCL 2% LOCAL INJ 5 ML SDV VIAL INJ ONE; +MIDAZOLAM HCL 2 MG/2 ML VIAL ONE; -POVIDONE IODINE 0.05% 0.05 % ML PO ONE
[2023-12-08] MEDS: LACTATED RINGER'S 1,000 ML ONE (07:33)
[2023-12-08 08:55] VITALS: BP 103/66; PULSE 61; RESP 16; TEMP 97.5; O2SAT 97
== END | disposition home or self-care (01) ==
LOC: OR 07:04
PROVIDERS: ATTEND Internal Medicine Gastroenterology
DX: K29.60 Other gastritis without bleeding (principal); K44.9 Diaphragmatic hernia without obstruction or gangrene; K29.50 Unspecified chronic gastritis without bleeding; K22.70 Barrett's esophagus without dysplasia; K31.89 Other diseases of stomach and duodenum; K21.9 Gastro-esophageal reflux disease without esophagitis; I45.10 Unspecified right bundle-branch block; K57.30 Diverticulosis of large intestine without perforation or abscess without bleeding; K64.8 Other hemorrhoids; Z80.0 Family history of malignant neoplasm of digestive organs; G47.33 Obstructive sleep apnea (adult) (pediatric); Z79.899 Other long term (current) drug therapy
CPT/HCPCS: 43239; 93005; J2001; J2250; J2704; J3010; J7121

== ENCOUNTER 2024-11-07 08:58 | Emergency (ER) | payer SELFPAY ==
[~2024-11-07] VITALS: Ht 170.2 cm; Wt 97.2 kg
[~2024-11-07 08:58] MED LIST changes: -FENTANYL CITRATE/PF 100MCG/2 ML INJ ONE; -LIDOCAINE HCL 2% LOCAL INJ 5 ML SDV VIAL INJ ONE; -MIDAZOLAM HCL 2 MG/2 ML VIAL ONE; -PROPOFOL IV EMULSION 10 MG/ML 20 ML VIAL ONE
[2024-11-07 09:15] VITALS: PULSE 89; RESP 20; TEMP 98.5; O2SAT 95
[2024-11-07] MEDS ORDERED: VENTOLIN HFA18 GM INH (10:02)
[2024-11-07] MEDS ORDERED: CORICIDIN HBP1 EAC3 PO (10:05)
== END 2024-11-07 10:08 | disposition home or self-care (01) ==
LOC: FSED 09:17
DX: R05.9 Cough, unspecified (principal); J06.9 Acute upper respiratory infection, unspecified; J45.909 Unspecified asthma, uncomplicated; Z11.52 Encounter for screening for COVID-19
CPT/HCPCS: 0223U; 83518; 87400; 99284